=== PATIENT | female | born 1940 | race Caucasian/White ===

== ENCOUNTER → 2024-01-06 10:19 | Outpatient (REF) | payer MEDICARE, BC, SELFPAY | LOC: HWRAD 10:19 | PROVIDERS: ATTENDING PHYSICIAN Student in an Organized Health Care Education/Training Program; FAMILY PHYSICIAN Internal Medicine | DX: A31.0 Pulmonary mycobacterial infection (principal) | CPT/HCPCS: 71250 ==

== ENCOUNTER → 2024-06-22 10:52 | Outpatient (REF) | payer MEDICARE, BC, SELFPAY | LOC: HWRAD 10:52 | PROVIDERS: ATTENDING PHYSICIAN Internal Medicine | DX: E04.1 Nontoxic single thyroid nodule (principal) | CPT/HCPCS: 76536 ==

== ENCOUNTER 2024-07-19 06:14 | Day surgery (SDC) | payer MEDICARE, BC, SELFPAY ==
[2024-07-19] VITALS (7 sets, daily range): BP systolic 101–155; BP diastolic 58–80; BMI 22.0
[2024-07-19] MEDS: NORMOSOL-R/PLASMALYTE-A 1000 IV (07:29)
[2024-07-19] MEDS: TYLENOL 1000 MG PO (07:44)
[2024-07-19] MEDS: CELEBREX 200 MG PO (07:45)
[2024-07-19] MEDS: ROXICODONE 5 MG PO (10:17)
== END 2024-07-19 10:45 | disposition home or self-care (01) ==
LOC: SDS 06:14
PROVIDERS: ATTENDING PHYSICIAN Orthopaedic Surgery
DX: G56.22 Lesion of ulnar nerve, left upper limb (principal)
CPT/HCPCS: 64718

== ENCOUNTER → 2024-08-01 10:56 | Outpatient (REF) | payer MEDICARE, BC, SELFPAY | LOC: HWRAD 10:56 | PROVIDERS: ATTENDING PHYSICIAN Internal Medicine; REFERRING PHYSICIAN Internal Medicine Rheumatology | DX: Z12.31 Encounter for screening mammogram for malignant neoplasm of breast (principal); M81.0 Age-related osteoporosis without current pathological fracture | CPT/HCPCS: 77063; 77067; 77080 ==

== ENCOUNTER → 2024-08-26 16:00 | Outpatient (REF) | payer MEDICARE, BC, SELFPAY | LOC: HWRCS 16:00 | PROVIDERS: ATTENDING PHYSICIAN Internal Medicine Cardiovascular Disease; FAMILY PHYSICIAN Internal Medicine | DX: Z86.79 Personal history of other diseases of the circulatory system (principal); R06.09 Other forms of dyspnea | CPT/HCPCS: 93306 ==

== ENCOUNTER 2024-09-26 18:19 | Inpatient (IN) | payer MEDICARE, BC, SELFPAY ==
[2024-09-26] VITALS (11 sets, daily range): BP systolic 101–133; BP diastolic 54–111; BMI 22.0; BMI 21.6
[2024-09-26 12:27] LABS: ALT (SGPT) 21 U/L (0-35); AST (SGOT) 32 U/L (14-36); Albumin 3.2 g/dl (3.5-5.0); Alkaline Phosphatase 63 U/L (38-126); Blood Urea Nitrogen 39 mg/dl (7-17); Calcium 8.2 mg/dl (8.4-10.2); Carbon Dioxide 20 mmol/L (22-30); Chloride 95 mmol/L (98-107); Estimated Creatinine Clearance 19 ml/min; Glucose 128 mg/dl (70-99); Lipase 20 U/L (23-300); Potassium 3.9 mmol/L (3.5-5.1); Sodium 131 mmol/L (135-145); Total Bilirubin 0.4 mg/dl (0.2-1.3); Total Protein 5.7 g/dl (6.3-8.2); eGFR 29.39
[2024-09-26] MEDS: OMNIPAQUE 50 ML PO (13:00)
[2024-09-26] MEDS: NSS 1000 IV ×2 (13:01→20:07)
[2024-09-26 13:17] LABS: Band Neutrophils 8 % (0-3); Hematocrit 28.9 % (37.0-47.0); Hemoglobin 10.5 g/dL (12.0-16.0); Lymphocytes 3 % (20-51); Mean Corp Hgb Conc. 36.3 g/dL (33.0-37.0); Mean Corpuscular Hgb 33.1 pg (27.0-31.0); Mean Corpuscular Volume 91.2 fL (81.0-99.0); Mean Platelet Volume 9.5 fL (7.4-10.4); Monocytes 6 % (2-9); Normal RBC Morphology No; Nucleated Red Blood Cells 1 (-); Platelet Count 162 10^3/uL (130-400); Platelets Checked Yes; Red Blood Cell Count 3.17 10^6/uL (4.20-5.40); Red Cell Dist. Width 14.1 % (11.5-14.5); Segmented Neutrophils 83 % (42-75); White Blood Cell Count 13.2 10^3/uL (4.8-10.8)
[2024-09-26 13:18] LABS: Rouleaux 1+; Total Cells Counted 100
--- NOTE | 2024-09-26 15:20 | ED.GENMED ---
History of Present Illness
<Raymond Shaw PA-C - Last Filed: 09/28/24 10:06>
General
Chief Complaint: Abdominal Symptoms
Time Seen by Provider: 09/26/24 12:44
History of Present Illness
History of Present Illness:
84-year-old female presents the emergency department for evaluation of general malaise. She reportedly had 2 days of fever over the weekend, the symptoms have resolved and she has been able to drink p.o. fluids today. Was sent to emergency
department by her nursing facility staff due to fatigue. She denies abdominal pain currently but has not had a bowel movement or passed flatus in the past 2 days
Past History
<Raymond Shaw PA-C - Last Filed: 09/28/24 10:06>
Past History
ED Past Medical History: COPD, Hypercholesterolemia and Other (Diverticulosis, osteoporosis)
ED Past Surgical History: Gynecological (Hysterectomy) and Orthopedic (Laminectomy, shoulder surgery)
Social History
Personal:
Living: with family
Employment: Retired
Review of Systems
<Raymond Shaw PA-C - Last Filed: 09/28/24 10:06>
Review of Systems
Allergies reviewed?: Yes
All Other Systems: ROS reviewed and negative except as documented in HPI and ROS
Phy Exam
<Raymond Shaw PA-C - Last Filed: 09/28/24 10:06>
Physical Exam
Physical Exam:
GEN: Well appearing, NAD, WDWN
HEENT: Oral mucosa moist, no scleral icterus
Cardiac: Mildly tachycardic, regular
Lung: No respiratory distress, no tachypnea
Abdomen: Soft, focal left lower and left upper abdominal tenderness, no distention
MSK: No gross deformity or injuries
Skin: Good color, no pallor or jaundice, no rashes
Neuro: AO x3, moves all extremities freely
Psych: Calm, cooperative
Course
<Raymond Shaw PA-C - Last Filed: 09/28/24 10:06>
Orders/Labs/Results
Orders:
Orders
09/26/24 11:42
EKG [Electrocardiogram (*1)] Urgent
Reason for Study: Tachycardia
09/26/24 11:43
EKG- Treatment ONCE
09/26/24 11:56
Complete Blood Count/With Diff Urgent
Comprehensive Metabolic Panel Urgent
Lipase Urgent
Manual Differential Urgent
09/26/24 12:51
CT Abd/pel (oral only)-[facility] Only Urgent
Comment:
Reason For Exam: N/V, distention
0.9% Sodium Chloride 1000 ml [Nss] 1,000 ml IV BOLUS
Iohexol [Omnipaque] See Protocol PO NOW STA
09/26/24 Dinner
NPO
Allow oral meds: Yes
Allow clear liquids: Sips of Clears
NPO with Ice Chips: Yes
09/26/24 15:52
0.9% Sodium Chloride 500 ml [Nss] 500 ml IV BOLUS
09/26/24 17:24
Mag Hydrox/Al Hydrox/Simeth [Maalox] 30 ml PO NOW STA
09/26/24 17:32
Blood Culture Urgent
GAYE Source: Blood/Venous
Specimen Description:
09/26/24 17:55
Lactate Level [Lactic Acid] Urgent
Procalcitonin Urgent
PCT Algorithmm Indication: Sepsis
09/26/24 17:58
Consult Surgery [SURGICAL CONSULT] Routine
Consulting Provider: Jovan Santana
Was physician already notified: Yes
Reason for consult: ruq pain septis concern acute choleycystitis
Ondansetron Injectable [Zofran] 4 mg IV Q6HPRN PRN
09/26/24 18:00
Admit/Transfer Patient As Directed
Co-Sign Provider:
Level of Care: Inpatient admission
Assign to:: Telemetry
Physician / Group: diony zavala
Diagnosis: sepsis impending shock conc. Acute choleycystits, xochitl/vomiting
Reason for Telemetry: Arrhythmia
Date to Stop Telemetry: 09/29/24
Time to Stop Telemetry: 11:00
Reason for Hospitalization: sepsis impending shock conc. Acute choleycystits, xochitl/vomiting
Expected length of stay greater than two midnights?: Yes
ELOS- Estimated Length of Stay in days: 5
I certify the patient meets the requirements for IP care: Yes
Code Status As Directed
Resuscitation Status: Do not resuscitate
Reached after discussion with pt or family/Healthcare POA: Yes
Based on pt advanced directive or healthcare POA form: Yes
Decision communicated with: Per patient with son Sj, Margo and daughter Dea at bedside
0.9% Sodium Chloride 1000 ml [Nss] 1,000 ml IV 80 mls/hr
Piperacillin/Tazo 2.25 Gram [Zosyn] 2.25 grams in 50 ml IV Q6H
DNR Bracelet Application ONCE
09/26/24 18:04
PRN Pain Medication Management As Directed
May give lesser potent ordered pain med per pt: Yes
preference::
Protocol:: Medication orders for pain may be administered in a
manner that supports deferring to patient preference
when the pt is:
- Requesting an ordered lesser potent pain medication.
Least to most potent pain medications are defined
as: acetaminophen < NSAID < tramadol < opioids
(morphine, oxycodone, hydromorphone).
- Requesting a lesser dose of the same medication IF
ORDERED.
- Requesting a less intrusive route of administration
if both routes are prescribed by the provider (PO <
IV).
09/26/24 19:35
Acetaminophen [Tylenol] 650 mg PO Q4HPRN PRN
Albuterol [ProAIR HFA INHALER] 2 puff INH R Q6HPRN PRN
09/26/24 19:35
Activity As Directed
Activity Level: As Tolerated
Intake/ Output As Directed
Frequency: Per unit guidelines
Vital Signs As Directed
Frequency: Per unit guidelines
Pt Eval And Treat Routine
Activity Level: As Tolerated
DX Deep Vein Thrombosis Video Routine
09/26/24 20:00
Fluticasone/Salmeterol 115/21 [Advair Hfa 115/21 Mcg Inhaler] 2 puff INH R BID
Heparin 5,000 units SC Q12
cycloSPORINE [Restasis 0.05% Ophthalmic Emulsion] 1 drops BOTH EYES Q12
09/26/24 22:00
Trazodone [Desyrel] 100 mg PO HS
09/27/24 00:00
US Abdomen Complete/Upper Urgent
Reason For Exam: ruq pain/septic shock
09/27/24 06:28
Cardiovascular Evaluation IN AM
Complete Blood Count/With Diff IN AM
Comprehensive Metabolic Panel IN AM
09/27/24 08:00
Calcium Carbonate/Vitamin D3 [Oscal 500 + D] 500 mg PO DAILY
Cholecalciferol (Vitamin D3) [VITAMIN D3 (cholecalciferol)] 25 mcg PO DAILY
Cyanocobalamin [Vitamin B-12] 1,000 mcg PO DAILY
Lactobac/Bifidobac [Visbiome] 1 cap PO DAILY
Multivitamin [Theragran] 1 tablet PO DAILY
Tiotropium [place] 2.5 Mcg [Spiriva Respimat 2.5 Mcg] 2 puff INH R DAILY
09/28/24 05:38
Complete Blood Count/With Diff IN AM
Comprehensive Metabolic Panel IN AM
09/29/24 06:00
Complete Blood Count/With Diff IN AM
Comprehensive Metabolic Panel IN AM
09/29/24 11:00
DC Protocol for Telemetry ONCE
09/30/24 06:00
Complete Blood Count/With Diff IN AM
Comprehensive Metabolic Panel IN AM
Abnormal Lab Results
09/26/24 09/26/24
11:56 17:55
WBC 13.2 H 10^3/uL
(4.8-10.8)
RBC 3.17 L 10^6/uL
(4.20-5.40)
Hgb 10.5 L g/dL
(12.0-16.0)
Hct 28.9 L %
(37.0-47.0)
MCH 33.1 H pg
(27.0-31.0)
Abs Neuts (Manual) 12.0 H 10^3/uL
(1.4-6.5)
Segmented Neutrophils 83 H %
(42-75)
Band Neutrophils 8 H %
(0-3)
Lymphocytes (Manual) 3 L %
(20-51)
Sodium 131 L mmol/L
(135-145)
Chloride 95 L mmol/L
(98-107)
Carbon Dioxide 20 L mmol/L
(22-30)
BUN 39 H mg/dl
(7-17)
Creatinine 1.7 H mg/dL
(0.6-1.0)
Glucose 128 H mg/dl
(70-99)
Lactic Acid < 0.5 L mmol/L
(0.7-2.0)
Calcium 8.2 L mg/dl
(8.4-10.2)
Total Protein 5.7 L g/dl
(6.3-8.2)
Albumin 3.2 L g/dl
(3.5-5.0)
Lipase 20 L U/L
(23-300)
Procalcitonin 12.75 H* ng/ml
(0.0-0.25)
09/26/24 11:56
09/26/24 11:56
Vital Signs
Initial and Last Documented VS:
Initial Vital Signs
Temp Pulse Resp BP Pulse Ox
98.7 F 110 21 109/60 94
09/26/24 11:43 09/26/24 11:43 09/26/24 11:43 09/26/24 11:43 09/26/24 11:43
Last Documented Vital Signs
Temp Pulse Resp BP Pulse Ox
98.3 F 85 16 116/61 98
09/28/24 07:30 09/28/24 07:30 09/28/24 07:30 09/28/24 07:30 09/28/24 07:30
<Jaxon Torres Jr., PA-C - Last Filed: 09/26/24 16:46>
Orders/Labs/Results
Orders:
Orders
09/26/24 11:42
EKG [Electrocardiogram (*1)] Urgent
Reason for Study: Tachycardia
09/26/24 11:43
EKG- Treatment ONCE
09/26/24 11:56
Complete Blood Count/With Diff Urgent
Comprehensive Metabolic Panel Urgent
Lipase Urgent
Manual Differential Urgent
09/26/24 12:51
CT Abd/pel (oral only)-[facility] Only Urgent
Comment:
Reason For Exam: N/V, distention
0.9% Sodium Chloride 1000 ml [Nss] 1,000 ml IV BOLUS
Iohexol [Omnipaque] See Protocol PO NOW STA
09/26/24 Dinner
NPO
Allow oral meds: Yes
Allow clear liquids: Sips of Clears
NPO with Ice Chips: Yes
09/26/24 15:52
0.9% Sodium Chloride 500 ml [Nss] 500 ml IV BOLUS
09/26/24 17:24
Mag Hydrox/Al Hydrox/Simeth [Maalox] 30 ml PO NOW STA
09/26/24 17:32
Blood Culture Urgent
GAYE Source: Blood/Venous
Specimen Description:
09/26/24 17:55
Lactate Level [Lactic Acid] Urgent
Procalcitonin Urgent
PCT Algorithmm Indication: Sepsis
09/26/24 17:58
Consult Surgery [SURGICAL CONSULT] Routine
Consulting Provider: Jovan Santana
Was physician already notified: Yes
Reason for consult: ruq pain septis concern acute choleycystitis
Ondansetron Injectable [Zofran] 4 mg IV Q6HPRN PRN
09/26/24 18:00
Admit/Transfer Patient As Directed
Co-Sign Provider:
Level of Care: Inpatient admission
Assign to:: Telemetry
Physician / Group: diony zavala
Diagnosis: sepsis impending shock conc. Acute choleycystits, xochitl/vomiting
Reason for Telemetry: Arrhythmia
Date to Stop Telemetry: 09/29/24
Time to Stop Telemetry: 11:00
Reason for Hospitalization: sepsis impending shock conc. Acute choleycystits, xochitl/vomiting
Expected length of stay greater than two midnights?: Yes
ELOS- Estimated Length of Stay in days: 5
I certify the patient meets the requirements for IP care: Yes
Code Status As Directed
Resuscitation Status: Do not resuscitate
Reached after discussion with pt or family/Healthcare POA: Yes
Based on pt advanced directive or healthcare POA form: Yes
Decision communicated with: Per patient with son Sj, Margo and daughter Dea at bedside
0.9% Sodium Chloride 1000 ml [Nss] 1,000 ml IV 80 mls/hr
Piperacillin/Tazo 2.25 Gram [Zosyn] 2.25 grams in 50 ml IV Q6H
DNR Bracelet Application ONCE
09/26/24 18:04
PRN Pain Medication Management As Directed
May give lesser potent ordered pain med per pt: Yes
preference::
Protocol:: Medication orders for pain may be administered in a
manner that supports deferring to patient preference
when the pt is:
- Requesting an ordered lesser potent pain medication.
Least to most potent pain medications are defined
as: acetaminophen < NSAID < tramadol < opioids
(morphine, oxycodone, hydromorphone).
- Requesting a lesser dose of the same medication IF
ORDERED.
- Requesting a less intrusive route of administration
if both routes are prescribed by the provider (PO <
IV).
09/26/24 19:35
Acetaminophen [Tylenol] 650 mg PO Q4HPRN PRN
Albuterol [ProAIR HFA INHALER] 2 puff INH R Q6HPRN PRN
09/26/24 19:35
Activity As Directed
Activity Level: As Tolerated
Intake/ Output As Directed
Frequency: Per unit guidelines
Vital Signs As Directed
Frequency: Per unit guidelines
Pt Eval And Treat Routine
Activity Level: As Tolerated
DX Deep Vein Thrombosis Video Routine
09/26/24 20:00
Fluticasone/Salmeterol 115/21 [Advair Hfa 115/21 Mcg Inhaler] 2 puff INH R BID
Heparin 5,000 units SC Q12
cycloSPORINE [Restasis 0.05% Ophthalmic Emulsion] 1 drops BOTH EYES Q12
09/26/24 22:00
Trazodone [Desyrel] 100 mg PO HS
09/27/24 00:00
US Abdomen Complete/Upper Urgent
Reason For Exam: ruq pain/septic shock
09/27/24 06:28
Cardiovascular Evaluation IN AM
Complete Blood Count/With Diff IN AM
Comprehensive Metabolic Panel IN AM
09/27/24 08:00
Calcium Carbonate/Vitamin D3 [Oscal 500 + D] 500 mg PO DAILY
Cholecalciferol (Vitamin D3) [VITAMIN D3 (cholecalciferol)] 25 mcg PO DAILY
Cyanocobalamin [Vitamin B-12] 1,000 mcg PO DAILY
Lactobac/Bifidobac [Visbiome] 1 cap PO DAILY
Multivitamin [Theragran] 1 tablet PO DAILY
Tiotropium [place] 2.5 Mcg [Spiriva Respimat 2.5 Mcg] 2 puff INH R DAILY
09/28/24 05:38
Complete Blood Count/With Diff IN AM
Comprehensive Metabolic Panel IN AM
09/29/24 06:00
Complete Blood Count/With Diff IN AM
Comprehensive Metabolic Panel IN AM
09/29/24 11:00
DC Protocol for Telemetry ONCE
09/30/24 06:00
Complete Blood Count/With Diff IN AM
Comprehensive Metabolic Panel IN AM
Abnormal Lab Results
09/26/24 09/26/24
11:56 17:55
WBC 13.2 H 10^3/uL
(4.8-10.8)
RBC 3.17 L 10^6/uL
(4.20-5.40)
Hgb 10.5 L g/dL
(12.0-16.0)
Hct 28.9 L %
(37.0-47.0)
MCH 33.1 H pg
(27.0-31.0)
Abs Neuts (Manual) 12.0 H 10^3/uL
(1.4-6.5)
Segmented Neutrophils 83 H %
(42-75)
Band Neutrophils 8 H %
(0-3)
Lymphocytes (Manual) 3 L %
(20-51)
Sodium 131 L mmol/L
(135-145)
Chloride 95 L mmol/L
(98-107)
Carbon Dioxide 20 L mmol/L
(22-30)
BUN 39 H mg/dl
(7-17)
Creatinine 1.7 H mg/dL
(0.6-1.0)
Glucose 128 H mg/dl
(70-99)
Lactic Acid < 0.5 L mmol/L
(0.7-2.0)
Calcium 8.2 L mg/dl
(8.4-10.2)
Total Protein 5.7 L g/dl
(6.3-8.2)
Albumin 3.2 L g/dl
(3.5-5.0)
Lipase 20 L U/L
(23-300)
Procalcitonin 12.75 H* ng/ml
(0.0-0.25)
09/26/24 11:56
09/26/24 11:56
Vital Signs
Initial and Last Documented VS:
Initial Vital Signs
Temp Pulse Resp BP Pulse Ox
98.7 F 110 21 109/60 94
09/26/24 11:43 09/26/24 11:43 09/26/24 11:43 09/26/24 11:43 09/26/24 11:43
Last Documented Vital Signs
Temp Pulse Resp BP Pulse Ox
98.3 F 85 16 116/61 98
09/28/24 07:30 09/28/24 07:30 09/28/24 07:30 09/28/24 07:30 09/28/24 07:30
<Raymond Shaw PA-C - Last Filed: 09/28/24 10:06>
MDM/Problems Addressed
MDM/Problems Addressed:
Patient presents after a bout of vomiting and fever over the weekend. She is noted to have mild acute kidney injury and signs of dehydration with mild tachycardia. On abdominal exam she has significant left-sided tenderness and given her report of
no flatus for at least 1 day we will obtain imaging to rule out a small bowel obstruction or other acute abdominal pathology. Care signed out to Ed Brian MATA pending imaging studies; likely plan to admit pt due to significant XOCHITL
<Jaxon Torres Jr., PA-C - Last Filed: 09/26/24 16:46>
*Critical Care Note
Total Time (30-74mins, 75-104mins- exclusive of procedures): Not Applicable
<Jaxon Torres Jr., PA-C - Last Filed: 09/26/24 16:46>
Update Note
Update Note:
Ed Brian Mata: Patient CT scan without emergent findings. Patient admitted for further treatment of XOCHITL.
ED Attending Note
<Raymond Shaw PA-C - Last Filed: 09/28/24 10:06>
-
Portions of this chart may have been created with voice recognition software.� Occasional wrong word or��sound alike� substitutions may have occurred due to the inherent limitations of voice recognition software.
Discharge Plan
Departure
Patient Disposition: Admit
Date of Disposition: 09/26/24
Time of Disposition: 16:46
Admit to: Med/Surg
Admit to doctor: Jazminey
Presentation/result/management discussed w/ accepting MD/DO: Hospitalist
Patient with high blood pressure during this ER visit?: No
Condition: Good
Covid-19: Not Applicable
Discharge Problem:
XOCHITL (acute kidney injury)
Interventions
Interventions:
*Risk Screen - Suicide Last Done: 09/26/24 11:38
*General Assessment Last Done: 09/26/24 11:38
*Neglect/Abuse Screening Last Done: 09/26/24 11:38
ED- Fall Risk Assessment Last Done: 09/26/24 11:38
*ED COVID-19 Vaccine History Last Done: 09/26/24 11:38
*Nursing Disposition Last Done: 09/26/24 18:57
LB-Jluooz-Cocypgvmwv Assessment Last Done: 09/26/24 11:44
Discharge Date and Time
Discharge Date/Time: 09/26/24 19:41
--- NOTE | 2024-09-26 16:48 | HPS.HSE ---
Family Physician
-
Family Physician: Rosalba Woods
Chief Complaint
-
Nausea, vomiting, indigestion x 5 days, fever x 3 days Tmax 102F
History of Present Illness
84-year-old female from [facility] who states she has had 5 days of fatigue, lack of appetite along with vomiting 3-4 times a day and indigestion. She reports she started with a fever 3 days ago Tmax 102F for the past 3 days Thursday
Thursday with last dose of Tylenol being Thursday evening. She states she has not eaten anything for the last 5 days she has been drinking water 30 to 40 ounces daily. In the ER she is tender in her right upper quadrant with complaints of
indigestion she is elevated white blood cell count with bandemia and XOCHITL due to vomiting/lack of oral intake. She has past medical history of essential HTN, HLD, chronic COPD, JENNIFER Dx January 2022 was on chronic antibiotics until January 2023 and
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
left cubital tunnel repair July 2024.
Impression/plan:
Admit to telemetry
#Sepsis impending shock concern for acute cholecystitis
Patient reports 3 days of fever Tmax 102F with nausea, vomiting, indigestion x 5 days
WBC 13.2 left shift bands 8%, 99.4F, HR 114
BP 101/60
-Blood culture x 1
-Consult ID
-Status post 2 L IV NSS in ER
-Stat ultrasound right upper quadrant
-IV Zosyn 2.5 g renal dose due to XOCHITL
-Follow CBC, CMP
CT abdomen pelvis oral contrast only:
1. No evidence for an acute process in the abdomen or pelvis within the limitations of lack of IV contrast
2. Mild cholelithiasis
3. Severe disc space narrowing at L4-L5 and L5-S1.
Grade 2 degenerative to anterior listhesis of L4 on L5.
Posterior laminectomy defects at L4-L5 and L5-S1.
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
EKG: Sinus tach 111 bpm, QTc 467 MS otherwise normal
#XOCHITL 2/2 GI losses, vomiting
Creat 1.7/bun 39
-IV NSS 2 L given in ER, IV NSS 80 cc/h
-Follow CMP
#Hypotension�mild in setting of sepsis/XOCHITL hypovolemia/essential HTN
BP 101/60> 124/78 status post 2 L IV NSS in ER
-Hold irbesartan 300 mg daily, furosemide 40 mg daily
#Macrocytic anemia suspect B12 deficiency
Hgb 10.5
-Continue B12 supplement
-Follow CBC
#Hx stage I diastolic dysfunction 2021
Follow LES
-Follows with Dr. Ortiz [facility] cardiology
2D echo 08/26/2024: EF 50 to 55%, no wall abnormalities, normal LVS and LVSF, mild mitral regurgitation. Moderately calcified aortic valve without stenosis. Mild to moderate TR, PASP 35 mmHg
#Chronic COPD
-Patient follows with Dr. Krishnamurthy
-Continue Advair 2 puffs twice daily, albuterol
#History of JENNIFER Dx January 2022
-Patient took course of azithromycin, ethambutol, rifampin from January 2022 until January 2023
Patient follows with Dr. Malone it is
#HLD
-Check lipid profile
-Hold Zocor 20 mg at bedtime
#Diverticulosis/diverticulitis status post colectomy, rectal fistula repair and anal fissure repair Hx
#Osteoporosis hx
-Continue vitamin D supplementation with calcium, patient also gets Prolia 60 mg SQ every 6 months
#Insomnia
-Continue trazodone 100 mg at bedtime
#Hx glaucoma with stents placed in eyes 3 to 4 years ago
-Continue Restasis eyedrops
DVT prophylaxis
Subcu heparin
DNR per patient with son Sj Margo present and daughter Dea present at bedside
Medical History
Past Medical History
Past Medical History: Reports Other (COPD, JENNIFER on chronic antibiotics from January 2022, hypercholesteremia, diverticulosis/diverticulitis status post colectomy, rectal fistula repair, anal fissure, osteoporosis, IBS,)
Past Surgical History: Reports Other ( Gynecological (Hysterectomy) and Orthopedic (Laminectomy, shoulder surgery)Left cubital tunnel syndrome release 07/19/2024 Hysterectomy Laminectomy Shoulder surgery Diverticulosis/diverticulitis status post
colectomy, rectal fistula repair and anal fissure repair)
Social History
Tobacco: Non-smoker
Alcohol: Occasional
Drug: None
Personal: Single
Living: Alone ([facility])
Family History
Family History: Other (Mother uterine cancer, father hit by a car)
Allergies / Home Medications
Allergies reflects when Allergies were last updated in [employer].
Home Medications with original date entered in [employer]
Allergy/Medication List:
Allergies
Allergy/AdvReac Type Severity Reaction Status Date / Time
codeine Allergy Nausea Verified 09/26/24 11:49
Iodinated Contrast Media Allergy Hives Verified 09/26/24 11:49
iodine Allergy Hives Verified 09/26/24 11:49
Home Medications
calcium 600 mg (as carbonate)-vitamin D3 10 mcg (400 unit) tablet (Calcium 600 + D(3)) 1 tab PO DAILY 05/14/15
denosumab 60 mg/mL subcutaneous syringe (Prolia) 60 mg SC [id number] 05/14/15
fluticasone 250 mcg-salmeterol 50 mcg/dose blistr powdr for inhalation (Advair Diskus) 2 puff inhalation R BID 05/14/15
tiotropium bromide 18 mcg capsule with inhalation device (Spiriva with HandiHaler) 1 cap inhalation R DAILY 05/14/15
cyanocobalamin (vitamin B-12) 1,000 mcg tablet 1,000 mcg PO DAILY 11/02/23
cyclosporine 0.05 % eye drops in a dropperette (Restasis) 1 drp BOTH EYES Q12H 11/02/23
irbesartan 300 mg tablet 300 mg PO DAILY 11/02/23
simvastatin 20 mg tablet (Zocor) 20 mg PO HS 11/02/23
trazodone 100 mg tablet 100 mg PO HS 11/02/23
Lactobac no.2-Bifidobac no.1-S. thermo 112.5 billion cell capsule (Visbiome) 1 cap PO DAILY 07/11/24
cholecalciferol (vitamin D3) 25 mcg (1,000 unit) capsule (Vitamin D3) 25 mcg PO DAILY 07/11/24
multivitamin 1 tab PO DAILY 07/11/24
loperamide 2 mg capsule 2 mg PO DAILYPRN PRN diarrhea 07/19/24
albuterol sulfate 90 mcg/actuation aerosol inhaler 2 puff inhalation R Q6HPRN PRN sob/wheezing 09/26/24
furosemide 40 mg tablet 40 mg PO DAILY 09/26/24
Review of Systems
-
History Source: Patient and Family
A 12 point ROS was completed and negative except as noted: Yes
Constitutional: Reports Fever; Denies Chills
EENT: Reports Other (Blood culture last week to lower lip resolved); Denies Sore Throat or Runny Nose
Respiratory: Denies Cough or Trouble Breathing
Cardiac: Denies Chest Pain, Palpitations or Syncope
Abdomen/GI: Reports Abdominal Pain (Right upper quadrant), Nausea, Vomiting and Anorexia
: Denies Dysuria, Frequency, Flank Pain, Incontinence, Difficulty Voiding or Urgency
Musculoskeletal: Denies Joint Pain or Edema
Skin: Denies Itching or Rash
Neurological: Reports Weakness; Denies Dizzy or Headache
Endocrine: Reports No Symptoms
Hematologic/Lymphatic: Reports No Symptoms
Psych: Reports Calm
Physical Exam
Vital Signs
Vital Signs
Temp Pulse Resp BP Pulse Ox
99.4 F 114 21 124/78 93
09/26/24 16:13 09/26/24 14:30 09/26/24 14:30 09/26/24 14:06 09/26/24 12:45
Physical Exam
General: Conversant and Pain; No Fever or Chills
HEENT: NormoCephalic, Anicteric, Moist mucous membranes, PERRLA, [place] Conjunctivae and No Ptosis
Respiratory: Clear; No Wheezes, Rales or Rhonchi
Cardiac: S1/S2 and Regular Rhythm; No Murmur, Rub, Gallop or Peripheral Edema
Breast: Deferred by me
GI: Soft, Non Distended, Normal Bowel Sounds, Tender (Right upper quadrant tenderness), No Hepatosplenomegaly and Other (Positive Swan sign)
Rectal: Deferred by Provider
Genito-urinary: Deferred by me
Musculoskeletal: No Clubbing, No Cyanosis, No Edema and Other (Herbedens nodes bilateral hands at DIP joints)
Skin: Warm and Dry; No Rash
Neuro: AO x 3, No Motor Deficits, Nonfocal/grossly intact, Cranial Nerves Intact and No Sensory Deficits; No Slurred Speech, Facial Droop, Tremors or Sedated
Psych: Calm
Laboratory Results
-
09/26/24 11:56
09/26/24 11:56
Laboratory Results
Total Bilirubin 0.4 mg/dl (0.2-1.3) 09/26/24 11:56
AST 32 U/L (14-36) 09/26/24 11:56
ALT 21 U/L (0-35) 09/26/24 11:56
Alkaline Phosphatase 63 U/L (38-126) 09/26/24 11:56
Lipase 20 U/L (23-300) L 09/26/24 11:56
Data Reviewed
-
CT Scan: Report Reviewed by me
Lab Data: Labs Reviewed by me
Impression/Plan
-
Impression/plan:
Admit to telemetry
#Sepsis impending shock concern for Acute cholecystitis
Patient reports 3 days of fever Tmax 102F with nausea, vomiting, indigestion x 5 days
WBC 13.2 left shift bands 8%, 99.4F, HR 114
BP 101/60
-Blood culture x 1, lactate, Pro-Eris
-Consult surgery
-Status post 2 L IV NSS in ER
-Stat Ultrasound right upper quadrant
-N.p.o. except sips clear , ice chips and meds
-Maalox given in ER
-IV Zosyn 2.5 g renal dose due to XOCHITL
-IV Zofran as needed
-Tylenol as needed pain, fever
-Follow CBC, CMP
CT abdomen pelvis oral contrast only:
1. No evidence for an acute process in the abdomen or pelvis within the limitations of lack of IV contrast
2. Mild cholelithiasis
3. Severe disc space narrowing at L4-L5 and L5-S1.
Grade 2 degenerative to anterior listhesis of L4 on L5.
Posterior laminectomy defects at L4-L5 and L5-S1.
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
EKG: Sinus tach 111 bpm, QTc 467 MS otherwise normal
#XOCHITL 2/2 GI losses, vomiting
Creat 1.7/bun 39
-IV NSS 2 L given in ER, IV NSS 80 cc/h
-Follow CMP
#Hypotension�mild in setting of sepsis/XOCHITL hypovolemia/essential HTN
BP 101/60> 124/78 status post 2 L IV NSS in ER
-Hold irbesartan 300 mg daily, furosemide 40 mg daily
#Macrocytic anemia suspect B12 deficiency
Hgb 10.5
-Continue B12 supplement
-Follow CBC
#Hx stage I diastolic dysfunction 2021
Follow LES
-Follows with Dr. Ortiz [facility] cardiology
2D echo 08/26/2024: EF 50 to 55%, no wall abnormalities, normal LVS and LVSF, mild mitral regurgitation. Moderately calcified aortic valve without stenosis. Mild to moderate TR, PASP 35 mmHg
#Chronic COPD
-Patient follows with Dr. Krishnamurthy
-Continue Advair 2 puffs twice daily, albuterol
#History of JENNIFER Dx January 2022
-Patient took course of azithromycin, ethambutol, rifampin from January 2022 until January 2023
Patient follows with Dr. Malone it is
#HLD
-Check lipid profile
-Hold Zocor 20 mg at bedtime
#Diverticulosis/diverticulitis status post colectomy, rectal fistula repair and anal fissure repair Hx
#Osteoporosis hx
-Continue vitamin D supplementation with calcium, patient also gets Prolia 60 mg SQ every 6 months
#Insomnia
-Continue trazodone 100 mg at bedtime
#Hx glaucoma with stents placed in eyes 3 to 4 years ago
-Continue Restasis eyedrops
DVT prophylaxis
Subcu heparin
DNR per patient with son Sj Margo present and daughter Dea present at bedside
[2024-09-26] MEDS: MAALOX 30 ML PO (17:49)
--- NOTE | 2024-09-26 17:51 | W.PN.UPDATE ---
Update Note
Progress Note Update
This note serves as an addendum to the H&P by engine assembly supervisor RACHEL Brinda STEWARDURGIS
HPI
84F I- ADL at [facility] HX Diverticulosos, HLD, HX Gall stone, COPD, hysterectomy seen at ER:
- report general malaise
- 2 days of fever over the weekend. T Max 102
- N/V since . No dirrhea, Poor POs
- dyspepsia but denied abdominal pain but tender RUQ on exam
Reviewed VS: T 99.4 HR 115 BP 124/78
PE
Gen: not toxic looking
HEENT: anicteric
Neck: supple
Lungs: CTA
Cor: ST , no mumur
Abdomen: Soft, tender RUQ but not guarded
BILLING CHECKER: AAO3, NFND
MS: no edema
Psych: AAO3
Laboratory Tests
11/03/23 09/26/24
05:55 11:56
WBC 13.2 H
Hgb 12.8 10.5 L
Band Neutrophils 8 H
Sodium 131 L
Chloride 95 L
Carbon Dioxide 20 L
BUN 39 H
Creatinine 0.5 L 1.7 H
eGFR 29.39
Total Bilirubin 0.4
AST 32
ALT 21
Alkaline Phosphatase 63
Albumin 3.2 L
Lipase 20 L
BCx sent
EKG
SINUS TACHYCARDIA
OTHERWISE NORMAL ECG
WHEN COMPARED WITH ECG OF 02-NOV-2023 13:41,
NO SIGNIFICANT CHANGE WAS FOUND
Confirmed by MD ARIELLA, AUBREY ([id number]) on 09/26/2024 2:59:[address] No [address] evidence for an acute process in the abdomen or pelvis within the limitations of the lack of intravenous contrast.
2. Mild cholelithiasis.
3. Additional chronic findings, as detailed above.
ASSESSMENT & PLAN
Sepsis concern for acute calculus cholecystitis, Gastritis
However nl LFTs. Nl Lipase
NEG CT for acute process
Associated with N/V. Poor POs. NO dirrhea
- US Abdomen
- BCx sent
- check LA and PCT
- Empiric Zosyn
- NPO except sips and ice chips, IVF for sepsis
- PRN Tylenol
- IV Zofran PRN
- Maalox PRN
- GS consult
XOCHITL due to dehydration and GI vomiting loss
Hyponatremia Na 131
- Hold Lasix
- Hold Irbesartan
- IV NS
Essential hypertension
- Hold irbesartan due to XOCHITL
Hypercholesterolemia
- Hold statin
HX JENNIFER
Compted as of azithromycin, ethambutol, rifampin January 2023
Diverticulosis
Osteoporosis
DVT Px: SQH
Full code
IP TLM
[2024-09-26] MEDS: ZOSYN 50 IV ×2 (18:10→23:41)
[2024-09-26] MEDS: NSS 500 IV (18:10)
[2024-09-26 18:15] LABS: Lactic Acid < 0.5 mmol/L (0.7-2.0)
[2024-09-26 18:32] LABS: Procalcitonin 12.75 ng/ml (0.0-0.25)
[2024-09-26] MEDS: ADVAIR HFA 115/21 MCG INHALER 2 PUFF INH (20:11)
[2024-09-26] MEDS: RESTASIS 0.05% OPHTHALMIC EMULSION 1 DROPS BOTH EYES (20:16)
[2024-09-26] MEDS: HEPARIN SC (20:20)
[2024-09-26] MEDS: ZOFRAN 4 MG IV (21:01)
[2024-09-26] MEDS: DESYREL 100 MG PO (21:02)
--- NOTE | 2024-09-26 22:00 | PTCARENOTE ---
Patient received from ED via stretcher, Family at bedside. Patient denies any N/V or abdominal pain upon arrival to floor. POC discussed with patient and family. All questions answered and all verbalized a good understanding. Sinus Tachycardia noted
on monitor, low 110's. MD aware, IVF started. Call correa reviewed with patient, left with in reach. Care ongoing. Will monitor.
[2024-09-27] VITALS (16 sets, daily range): BP systolic 103–139; BP diastolic 50–70; BMI 21.7
[2024-09-27] MEDS: ZOSYN 50 IV ×2 (05:27→13:13)
[2024-09-27] MEDS: NSS 1000 IV ×2 (05:32→18:00)
[2024-09-27 07:02] LABS: % Basophils 0.3 % (0-2); % Eosinophils 0.7 % (0-6); % Immature Granulocytes 1.5 % (0-0.5); % Lymphocytes 8.6 % (20.5-51.1); % Monocytes 8.6 % (1.7-9.3); % Neutrophils 80.3 % (42.2-75.2); Absolute Eosinophils 0.1 10^3/uL (0-0.7); Absolute Immature Granulocytes 0.1 10^3/uL (0-0.05); Absolute Lymphocytes 0.8 10^3/uL (1.2-3.4); Absolute Monocytes 0.8 10^3/uL (0.1-0.6); Absolute Neutrophils 7.5 10^3/uL (1.4-6.5); Hematocrit 27.7 % (37.0-47.0); Hemoglobin 9.9 g/dL (12.0-16.0); Mean Corp Hgb Conc. 35.7 g/dL (33.0-37.0); Mean Corpuscular Hgb 33.3 pg (27.0-31.0); Mean Corpuscular Volume 93.3 fL (81.0-99.0); Mean Platelet Volume 9.5 fL (7.4-10.4); Nucleated Red Blood Cells % 0 %; Platelet Count 154 10^3/uL (130-400); Red Blood Cell Count 2.97 10^6/uL (4.20-5.40); Red Cell Dist. Width 14.6 % (11.5-14.5); White Blood Cell Count 9.3 10^3/uL (4.8-10.8)
[2024-09-27 07:31] LABS: ALT (SGPT) 21 U/L (0-35); AST (SGOT) 34 U/L (14-36); Albumin 2.8 g/dl (3.5-5.0); Alkaline Phosphatase 56 U/L (38-126); Blood Urea Nitrogen 32 mg/dl (7-17); Calcium 7.2 mg/dl (8.4-10.2); Carbon Dioxide 18 mmol/L (22-30); Chloride 102 mmol/L (98-107); Estimated Creatinine Clearance 24 ml/min; Glucose 88 mg/dl (70-99); HDL Cholesterol 16 mg/dl; LDL Cholesterol, Calculated 57 mg/dl; Potassium 3.5 mmol/L (3.5-5.1); Sodium 135 mmol/L (135-145); Total Bilirubin 0.3 mg/dl (0.2-1.3); Total Cholesterol 109 mg/dl (50-199); Total Protein 5.3 g/dl (6.3-8.2); Triglyceride 183 mg/dl (10-149); Very Low Density Lipoprotein 36 mg/dl (0-30)
--- NOTE | 2024-09-27 07:46 | CON.GS ---
Addendum entered and electronically signed by Jovan Santana MD 09/27/24 07:59:
Attempted to contact family, no response.
Original Note:
Medical History
-
Chief Complaint: General malaise, nausea and vomiting, abdominal pain
History of Present Illness:
Patient is an 84 yo F with a PMH of HLD, COPD, JENNIFER, IBS, diverticulitis s/p partial colectomy, s/p rectal fistula and anal fissure repair, s/p multiple orthopedic procedures, and s/p hysterectomy. Ms. Soto presents with approximately 5 days of
fatigue and weakness. Associated poor appetite, as well as nausea and vomiting. Associated fevers up to 102. She denies any significant abdominal pain. She reports looser stools. She denies any jaundice, pale stools, or tea colored urine. She
denies any prior knowledge or issues with her gallbladder. No significant improvement in symptoms since admission.
She recently underwent a LEFT cubital tunnel release on 07/19/[address] Rivas. She tolerated this procedure well, but does have some residual discomfort necessitating some assistance with living. She currently lives at [facility].
Past Medical History
Past Medical History: COPD, Hypercholesterolemia and Other (JENNIFER, IBS)
Past Surgical History: Bowel Resection (Diverticulitis s/p partial colectomy, rectal fstula and aa fissure repair) and Gynecological (Hysterectomy)
Social History
Tobacco: Former Smoker
Alcohol: Occasional
Drug: None
Personal: Single
Living: Alone ([facility])
Family History
Family History: Reviewed & Noncontributory
Allergies / Home Medications
Allergy/AdvReac Type Severity Reaction Status Date / Time
codeine Allergy Nausea Verified 09/26/24 11:49
Iodinated Contrast Media Allergy Hives Verified 09/26/24 11:49
iodine Allergy Hives Verified 09/26/24 11:49
�Medication �Instructions �Recorded �Confirmed �Type
calcium 600 mg (as 1 tab PO DAILY 05/14/15 09/26/24 History
carbonate)-vitamin D3 10 mcg (400
unit) tablet (Calcium 600 + D(3))
denosumab 60 mg/mL subcutaneous 60 mg SC [id number] 05/14/15 09/26/24 History
syringe (Prolia)
fluticasone 250 mcg-salmeterol 50 2 puff inhalation R BID 05/14/15 09/26/24 History
mcg/dose blistr powdr for
inhalation (Advair Diskus)
tiotropium bromide 18 mcg capsule 1 cap inhalation R DAILY 05/14/15 09/26/24 History
with inhalation device (Spiriva
with HandiHaler)
cyanocobalamin (vitamin B-12) 1,000 mcg PO DAILY 11/02/23 09/26/24 History
1,000 mcg tablet
cyclosporine 0.05 % eye drops in a 1 drp BOTH EYES Q12H 11/02/23 09/26/24 History
dropperette (Restasis)
irbesartan 300 mg tablet 300 mg PO DAILY 11/02/23 09/26/24 History
simvastatin 20 mg tablet (Zocor) 20 mg PO HS 11/02/23 09/26/24 History
trazodone 100 mg tablet 100 mg PO HS 11/02/23 09/26/24 History
Lactobac no.2-Bifidobac no.1-S. 1 cap PO DAILY 07/11/24 09/26/24 History
thermo 112.5 billion cell capsule
(Visbiome)
cholecalciferol (vitamin D3) 25 25 mcg PO DAILY 07/11/24 09/26/24 History
mcg (1,000 unit) capsule (Vitamin
D3)
multivitamin 1 tab PO DAILY 07/11/24 09/26/24 History
loperamide 2 mg capsule 2 mg PO DAILYPRN PRN diarrhea 07/19/24 09/26/24 History
albuterol sulfate 90 mcg/actuation 2 puff inhalation R Q6HPRN PRN 09/26/24 09/26/24 History
aerosol inhaler sob/wheezing
furosemide 40 mg tablet 40 mg PO DAILY 09/26/24 09/26/24 History
Review of Systems
-
A 10 point review of systems was completed, and was negative except as per HPI.
Physical Exam
Vital Signs
Temp Pulse Resp BP Pulse Ox
98.7 F 104 18 105/50 93
09/27/24 03:00 09/27/24 03:00 09/27/24 03:00 09/27/24 03:00 09/27/24 03:00
09/26/24 09/27/24 09/28/24
06:59 06:59 06:59
Actual Weight 53.722 kg
Body Mass Index (BMI) 21.7
Lab Results
09/27/24 06:28
09/27/24 06:28
WBC 9.3 10^3/uL (4.8-10.8) 09/27/24 06:28
Hgb 9.9 g/dL (12.0-16.0) L 09/27/24 06:28
Hct 27.7 % (37.0-47.0) L 09/27/24 06:28
Plt Count 154 10^3/uL (130-400) 09/27/24 06:28
Abs Immat Gran (auto) 0.1 10^3/uL (0-0.05) H 09/27/24 06:28
Neutrophils % 80.3 % (42.2-75.2) H 09/27/24 06:28
Physical Exam
General: Well Developed, Well Nourished, No Apparent Distress and Other (Weak)
HEENT: Normocephalic and Anicteric
Respiratory: Non Labored Respirations
Cardiac: Regular Rhythm
GI: Soft, Tender (RUQ, positive Swan's sign), Distended, Incisions (Well healed) and Other (No peritonitis)
Skin: Warm and Dry
Neuro: Nonfocal/Grossly Intact
Data Reviewed
-
CT Scan: Image Personally Visualized and interpreted and Report Reviewed by me
Labs: Labs Reviewed by me
Old Records: Reviewed
Assessment / Plan
-
Patient is a 84 yo F p/w likely acute cholecystitis
Persistent RUQ abdominal discomfort. CT scan imaging reviewed and demonstrates a moderately dilated gallbladder with cholelithiasis without significant radiographic evidence of gallbladder wall thickening, pericholecystic edema, or surrounding
inflammation. US abdomen and repeat labs pending. The natural history and pathophysiology of biliary and stone disease was discussed. Options for management including medical management with a low-fat diet and attempted further trial of
antibiotics versus cholecystectomy were considered and discussed. The pros and cons of both approaches was discussed. Specifically, we discussed failure of medical management and future attacks or episodes versus surgical risks. Recommend
cholecystectomy.
Plan for a laparoscopic cholecystectomy with possible cholangiogram. The procedure itself, as well as the risks, benefits, and alternatives was discussed. Specifically, we discussed the risks of bleeding, infection, injury to surrounding
structures (bowel, bile ducts), CBD injury, need for open procedure. Typical postprocedural recovery was discussed. Specifically, we discussed pain management, activity or functional restrictions, and the 10 to 20% risks of fluctuations in GI
function. All questions answered.
-- US abdomen pending, patient in process of obtaining this imaging
-- Tentative plan for laparoscopic cholecystectomy with cholangiogram
-- NPO, IVF
-- Abx: Zosyn
[2024-09-27] MEDS: ADVAIR HFA 115/21 MCG INHALER INH (08:07)
[2024-09-27] MEDS: SPIRIVA RESPIMAT 2.5 MCG INH (08:08)
[2024-09-27] MEDS: RESTASIS 0.05% OPHTHALMIC EMULSION 1 DROPS BOTH EYES ×2 (08:41→20:29)
[2024-09-27] MEDS: VISBIOME 1 CAP PO (08:42)
[2024-09-27] MEDS: HEPARIN SC ×2 (08:44→20:29)
--- NOTE | 2024-09-27 09:04 | W.PN.HOSP.TC ---
Addendum entered and electronically signed by Cherise Underwood MD 09/27/24 14:02:
Addendum
Blood culture is E coli ESBL, will change to meropenem for now
repeat blood culture
consult ID
Urinalysis is requested.
Isolation room.
End
Addendum entered and electronically signed by Cherise Underwood MD 09/27/24 09:17:
Addendum
Hyponatremia, mild, resolving
End
Original Note:
Today's Communication/Plan
-
She is complaining of polyuria/ urgency, positive blood cultures: stat urinalysis with cultures.
Repeat blood culture
f/w Abdominal US
Assessment / Plan
Assessment / Plan
Physical Exam
General: Conversant and Pain; No Fever or Chills
HEENT: Normocephalic, Anicteric, Moist mucous membranes, PERRLA, [place] Conjunctivae and No Ptosis
Respiratory: Clear; No Wheezes, Rales or Rhonchi
Cardiac: S1/S2 and Regular Rhythm
GI: Soft, Non Distended, Normal Bowel Sounds, not Tender
Rectal: No bleeding
Genito-urinary:no [place]
Musculoskeletal: No Clubbing, No Cyanosis, No Edema and Other (Herbedens nodes bilateral hands at DIP joints)
Skin: Warm and Dry; No Rash
Neuro: AO x 3, No Motor Deficits, Nonfocal/grossly intact, ; No Slurred Speech, Facial Droop, Tremors or Sedated
Psych: Calm
#Sepsis POA
impending shock concern for acute cholecystitis Vs UTI
Patient reports 3 days of fever Tmax 102F with nausea, vomiting, indigestion x 5 days
c/w IV Zosyn
Send for urine test and culture
Afebrile, WBC normalized. She denies abdominal pain this morning.
# Bacteremia
repeat blood culture
#XOCHITL
Likely due to infection and dehydration
creatinine is coming down
c/w IVF
#Septic shock
B is improving
c/w IVF
-Hold irbesartan 300 mg daily, furosemide 40 mg daily
#Chronic anemia suspect B12 deficiency
Hgb 10.5
-Continue B12 supplement
-Follow CBC
#Hx stage I diastolic dysfunction 2021
Monitor weight
-Follows with Dr. Ortiz [facility] cardiology
2D echo 08/26/2024: EF 50 to 55%, no wall abnormalities, normal LVS and LVSF, mild mitral regurgitation. Moderately calcified aortic valve without stenosis. Mild to moderate TR, PASP 35 mmHg
#Chronic COPD
-Patient follows with Dr. Krishnamurthy
-Continue Advair 2 puffs twice daily, albuterol
#History of JENNIFER Dx January 2022
-Patient took course of azithromycin, ethambutol, rifampin from January 2022 until January 2023
Patient follows with Dr. Malone it is
#HLD
-Check lipid profile
-Hold Zocor 20 mg at bedtime
#Diverticulosis/diverticulitis status post colectomy, rectal fistula repair and anal fissure repair Hx
#Osteoporosis hx
-Continue vitamin D supplementation with calcium, patient also gets Prolia 60 mg SQ every 6 months
#Insomnia
-Continue trazodone 100 mg at bedtime
#Hx glaucoma with stents placed in eyes 3 to 4 years ago
-Continue Restasis eyedrops
DVT prophylaxis
Subcu heparin
DNR per patient with son Sj Margo present and daughter Dea present at bedside
Total time spent to see the patient on the floor, examine the patient, review data and lab results, discuss treatment plan with patient, nursing staff around 55 minutes
Anticipated Discharge: > 48 hours
Subjective/Interval History
-
Date of Service: September 27, 2024
Objective Data
-
Labs:
Laboratory Results
09/27/24
06:28
WBC 9.3
Hgb 9.9 L
Hct 27.7 L
Plt Count 154
Sodium 135
Potassium 3.5
Chloride 102
Carbon Dioxide 18 L
BUN 32 H
Creatinine 1.4 H
Glucose 88
Calcium 7.2 L
Total Bilirubin 0.3
AST 34
ALT 21
Alkaline Phosphatase 56
Vital Signs:
Vital Signs
Temp Pulse Resp BP Pulse Ox
99.6 F 98 18 117/64 93
09/27/24 07:30 09/27/24 07:30 09/27/24 07:30 09/27/24 07:30 09/27/24 07:30
I&O
09/26/24 09/27/24 09/28/24
06:59 06:59 06:59
Intake Total 0 / 0
Balance 0 / 0
--- NOTE | 2024-09-27 10:12 | W.SUR.PREOP ---
Pre-Operative Surgical Note
-
I have examined this patient prior to the performance of the scheduled procedure.
The patient's condition is unchanged from the time of the current History and
Physical and the patient is able to undergo the scheduled procedure.
--- NOTE | 2024-09-27 12:42 | W.IMMPOSTOP ---
Addendum entered and electronically signed by Jovan Santana MD 09/27/24 12:51:
Dic#[id number]
Original Note:
Surgical Immed Post Op Note
-
Primary Surgeon: Max
Assisting Surgeon: AMERICO Burris
Pre-op Diagnosis: Cholecystitis
Post-op Diagnosis: Chronic cholecystitis
Procedure Performed: Laparoscopic cholecystectomy with IOC
Anesthesia Type: General
Specimen / Cultures:
1. Gallbladder
Estimated Blood Loss: 3 cc
Complications: None
Operative Findings:
1. Distended GB, thick sludge, omental and fatty adhesions at infundibulum, cecum and appendix within RUQ, gaseous distension soft no ischemia
2. Critical view of safety
3. IOC with no filling defects
4. Duct and artery taken with clips
--- NOTE | 2024-09-27 14:10 | PTCARENOTE ---
Patient received post-op with distended bladder she denied need to void. Bladder scan [address] Santana aware order obtain to straight cath and leave adorno in if >300ml . Adorno placed without difficulty output 1050ml of cloudy
sediment, urine send down for culture. Patient verbalize some discomfort to right back post op which quickly dissolved on its on.
[2024-09-27 14:11] LABS: Urine Albumin 2+ (Neg - Trace); Urine Bilirubin Negative (Negative); Urine Character Very Cloudy (Clear); Urine Color Yellow; Urine Glucose Negative (Negative); Urine Ketone 2+ (Negative); Urine Leukocyte 2+ (Negative); Urine Nitrite Negative (Negative); Urine Occult Blood 3+ (Negative); Urine Specific Gravity 1.015 (<1.030); Urine Urobilinogen Negative (Neg - 1+)
[2024-09-27 14:19] LABS: Urine White Cell >100 /HPF (0-5)
--- NOTE | 2024-09-27 14:39 | CON.ID ---
Consultation
-
Date/Time Consultation Requested: 09/27/2024 1356
Date/Time Consultation Performed: 09/27/2024 1440
Requesting Provider: Dr. Jenny Underwood
Performing Provider: Dr. Caroline East
Reason for Consultation: ESBL bacteremia
Chief Complaint / Past History
Chief Complaint
Nausea and vomiting, abdominal pain
History of Present Illness
84-year-old female with history of COPD, pulmonary JENNIFER treated, diverticulitis status post colectomy who presented to the hospital on September 26 with intractable nausea vomiting and poor appetite. She had fever up to 102 at home. Positive
diarrhea. Positive upper abdominal pain. Her white count was 13.2 with 8% bands. CAT scan of the abdomen pelvis was unremarkable without acute process. Abdominal ultrasound large amount of gallbladder sludge and few moderate-sized gallstones.
Patient was taken to the OR today status post laparoscopic cholecystectomy. Admission blood culture 1 out of 1 positive for ESBL E. coli. She denies urinary symptoms of dysuria, urgency or frequency. Postop today, she developed urinary retention
up to 1 L requiring Monsivais placement. Nausea now improved. She has some postop pain. Chronic cough is stable. Diarrhea is improving.
Past History
Additional Past Medical History:
COPD
Pulm JENNIFER s/p treatment completed 01/2024
HLD
Osteoporosis
Diverticulosis/diverticulitis status post colectomy
Rectal fistula repair, anal fissure
IBS
Skin SSC excision
Hysterectomy
Laminectomy
shoulder surgery
Carpal tunnel release
Allergy History:
codeine Allergy (Verified 09/26/24 11:49)
Nausea
Iodinated Contrast Media Allergy (Verified 09/26/24 11:49)
Hives
iodine Allergy (Verified 09/26/24 11:49)
Hives
Medications Reviewed: Yes
Current Antibiotics:
s/p Zosyn.
Meropenem
Social History
Tobacco: Former Smoker
Alcohol: None
Drug: None
Personal:
Living: Assisted Living
Family History
Family History: Not Pertinent
Review of Systems
Review of Systems
General: Fever, Chills and Change in Appetite
HEENT: Negative Sinus Problems, Headache or Pharyngitis
Cardiovascular: Negative Chest Pain or Dyspnea
Respiratory: Negative Dyspnea
Gasteroenterology: Nausea and Vomiting
Genital / Urological: Negative Dysuria, Hematuria or Flank Pain
Endocrine: Weakness
Skin / Hair / Nails: Negative Rash
All systems: All other systems were reviewed and were negative
Vital Signs
Temp Pulse Resp BP Pulse Ox
98.1 F 93 20 124/66 100
09/27/24 12:45 09/27/24 14:15 09/27/24 14:15 09/27/24 14:15 09/27/24 13:30
Physical Exam
Physical Exam
Constitutional: No Acute Distress
Eyes: No Conjunctival Hemorrhage and Sclera Anicteric
Cardiovascular: Regular Rate and S1/S2
Pulmonary: Clear
Gastrointestinal: Soft, Tender (RUQ), Non Distended and Decreased Bowel Sounds
Genito-Urinary: Monsivais and Clear Urine
Extremities: Negative Edema
Neurological: AO x 3
Lab / Diagnostic Study Results
09/27/24 06:28
09/27/24 06:28
Abs Immat Gran (auto) 0.1 10^3/uL (0-0.05) H 09/27/24 06:28
Absolute Neuts (auto) 7.5 10^3/uL (1.4-6.5) H 09/27/24 06:28
Absolute Lymphs (auto) 0.8 10^3/uL (1.2-3.4) L 09/27/24 06:28
Absolute Monos (auto) 0.8 10^3/uL (0.1-0.6) H 09/27/24 06:28
Absolute Basos (auto) 0.0 10^3/uL (0-0.2) 09/27/24 06:28
Total Counted 100 09/26/24 11:56
Immature Gran % 1.5 % (0-0.5) H 09/27/24 06:28
Neutrophils % 80.3 % (42.2-75.2) H 09/27/24 06:28
Lymphocytes % 8.6 % (20.5-51.1) L 09/27/24 06:28
Monocytes % 8.6 % (1.7-9.3) 09/27/24 06:28
Eosinophils % 0.7 % (0-6) 09/27/24 06:28
Basophils % 0.3 % (0-2) 09/27/24 06:28
Abs Neuts (Manual) 12.0 10^3/uL (1.4-6.5) H 09/26/24 11:56
Segmented Neutrophils 83 % (42-75) H 09/26/24 11:56
Band Neutrophils 8 % (0-3) H 09/26/24 11:56
Lymphocytes (Manual) 3 % (20-51) L 09/26/24 11:56
Lactic Acid < 0.5 mmol/L (0.7-2.0) L 09/26/24 17:55
Procalcitonin 12.75 ng/ml (0.0-0.25) H* 09/26/24 17:55
Ur Squamous Epith Cells Band Manager 09/27/24 09:03
Microbiology Results
Micro:
09/27/24 09:03 Urine Culture - Pending
Urine
09/26/24 17:32 Blood Culture - Preliminary
Blood/Venous Escherichia coli - ESBL
Gram Stain - Final
09/27/24 09:40 Blood Culture - Pending
Blood/Venous
09/27/24 05:49 C. difficile GDH Antigen & Toxins - Final
Feces/Stool Negative for toxigenic C.difficile
09/27/24 ABD US: Large amount of gallbladder sludge and a few moderate-sized gallstones. No secondary findings to suggest acute cholecystitis. Clinical and laboratory correlation recommended.
09/27/24 CT a/p: No CT evidence for an acute process in the abdomen or pelvis within the limitations of the lack of intravenous contrast. Mild cholelithiasis.
Assessment / Plan
# Acute on chronic cholecystitis
- s/p lap scottie 09/27
# ESBL-Ecoli bacteremia 11/16 set
- Suspect cholecystitis source vs urine source UA >100 wbc but pt without urinary sxs
- Meropenem 500mg IVq12 (renally adjusted)
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
COPD
Pulm JENNIFER s/p treatment completed 01/2024
HLD
Osteoporosis
Diverticulosis/diverticulitis status post colectomy
Rectal fistula repair, anal fissure
IBS
Skin SSC excision
Hysterectomy
Laminectomy
shoulder surgery
Carpal tunnel release
[2024-09-27] MEDS: SPIRIVA RESPIMAT 2.5 MCG 2 PUFF INH (16:42)
[2024-09-27] MEDS: STERILE WATER FOR INJECTION 10 ML IV (16:55)
[2024-09-27] MEDS: MERREM 500 MG IV (17:00)
[2024-09-27] MEDS: ADVAIR HFA 115/21 MCG INHALER 2 PUFF INH (19:39)
[2024-09-27] MEDS: DESYREL 100 MG PO (21:11)
[2024-09-28 03:50] VITALS: BP 116/64
[2024-09-28] MEDS: MERREM 500 MG IV ×2 (04:46→11:06)
[2024-09-28] MEDS: STERILE WATER FOR INJECTION 10 ML IV ×2 (04:47→11:02)
[2024-09-28] MEDS: SPIRIVA RESPIMAT 2.5 MCG 2 PUFF INH (06:07)
[2024-09-28] MEDS: ProAIR HFA INHALER 2 PUFF INH ×3 (06:07→20:12)
[2024-09-28] MEDS: ADVAIR HFA 115/21 MCG INHALER 2 PUFF INH ×2 (06:07→20:05)
[2024-09-28 06:16] LABS: % Basophils 0.2 % (0-2); % Immature Granulocytes 1.6 % (0-0.5); % Lymphocytes 11.2 % (20.5-51.1); % Monocytes 7.3 % (1.7-9.3); % Neutrophils 79.7 % (42.2-75.2); Absolute Immature Granulocytes 0.1 10^3/uL (0-0.05); Absolute Lymphocytes 0.9 10^3/uL (1.2-3.4); Absolute Monocytes 0.6 10^3/uL (0.1-0.6); Absolute Neutrophils 6.7 10^3/uL (1.4-6.5); Hematocrit 27.8 % (37.0-47.0); Hemoglobin 9.9 g/dL (12.0-16.0); Mean Corp Hgb Conc. 35.6 g/dL (33.0-37.0); Mean Corpuscular Hgb 33.7 pg (27.0-31.0); Mean Corpuscular Volume 94.6 fL (81.0-99.0); Mean Platelet Volume 9.6 fL (7.4-10.4); Nucleated Red Blood Cells % 0 %; Platelet Count 164 10^3/uL (130-400); Red Blood Cell Count 2.94 10^6/uL (4.20-5.40); White Blood Cell Count 8.3 10^3/uL (4.8-10.8)
[2024-09-28 06:39] LABS: ALT (SGPT) 33 U/L (0-35); AST (SGOT) 43 U/L (14-36); Albumin 2.6 g/dl (3.5-5.0); Alkaline Phosphatase 57 U/L (38-126); Blood Urea Nitrogen 30 mg/dl (7-17); Calcium 7.2 mg/dl (8.4-10.2); Carbon Dioxide 20 mmol/L (22-30); Chloride 105 mmol/L (98-107); Estimated Creatinine Clearance 28 ml/min; Glucose 135 mg/dl (70-99); Potassium 4.3 mmol/L (3.5-5.1); Sodium 135 mmol/L (135-145); Total Bilirubin 0.2 mg/dl (0.2-1.3); Total Protein 5.1 g/dl (6.3-8.2); eGFR 44.64
[2024-09-28 07:30] VITALS: BP 116/61
[2024-09-28 07:46] LABS: Folate > 20.0 ng/ml (2.76-20); Vitamin B12 > 1000 pg/ml (239-931)
[2024-09-28] MEDS: ProAIR HFA INHALER INH ×2 (08:56→15:16)
[2024-09-28] MEDS: RESTASIS 0.05% OPHTHALMIC EMULSION 1 DROPS BOTH EYES ×2 (09:17→21:36)
[2024-09-28] MEDS: VISBIOME 1 CAP PO (09:17)
[2024-09-28] MEDS: TESSALON PERLES 100 MG PO ×3 (09:17→21:34)
[2024-09-28] MEDS: MUCINEX 600 MG PO ×2 (09:17→21:34)
[2024-09-28] MEDS: HEPARIN 5000 UNITS SC (09:21)
--- NOTE | 2024-09-28 09:58 | W.PN.HOSP.TC ---
Today's Communication/Plan
-
Mild COPD exacerbation, add Mucinex Tessalon, change albuterol to [id number]. Not significant wheezes heard this morning
Repeat blood culture
Adjust meropenem dose according to improved renal function
Plan to resume diuretic therapy tomorrow
Assessment / Plan
Assessment / Plan
Physical Exam
General: Conversant and Pain; No Fever or Chills
HEENT: Normocephalic, Anicteric, Moist mucous membranes, PERRLA, [place] Conjunctivae and No Ptosis
Respiratory: Clear; No Wheezes, Rales or Rhonchi
Cardiac: S1/S2 and Regular Rhythm
GI: Soft, Non Distended, Normal Bowel Sounds, not Tender
Rectal: No bleeding
Genito-urinary:no Monsivais
Musculoskeletal: No Clubbing, No Cyanosis, No Edema and Other (Herbedens nodes bilateral hands at DIP joints)
Skin: Warm and Dry; No Rash
Neuro: AO x 3, No Motor Deficits, Nonfocal/grossly intact, ; No Slurred Speech, Facial Droop, Tremors or Sedated
Psych: Calm
# History of lack of appetite along with vomiting 3-4 times a day and indigestion
imaging studies showed signs of gall bladder disease
s/p alp scottie by surgery on 09/27.
#Sepsis POA
Stable now, afebrile
s/p ABx, IVF
# Bacteremia with E Coli
UTI With E Coli
Will repeat blood culture
Will re-adjust meropenem dose according to renal function
#XOCHITL
Likely due to infection and dehydration
creatinine is coming down
no need for more IVF as she has hx of CHF
#Septic shock
resolved.
-Hold irbesartan 300 mg daily, furosemide 40 mg daily, will resume in AM
#Chronic anemia with low MCV
Hgb 10.5
High Vitamin B12 and Folate
-Continue B12 supplement
- Will recommend to f/w PCP to do further work up
#Hx stage I diastolic dysfunction 2021
Monitor weight
-Follows with Dr. Ortiz [facility] cardiology
2D echo 08/26/2024: EF 50 to 55%, no wall abnormalities, normal LVS and LVSF, mild mitral regurgitation. Moderately calcified aortic valve without stenosis. Mild to moderate TR, PASP 35 mmHg
#Chronic COPD
IIn mild exacerbation
-Patient follows with Dr. Goddard
-Continue Advair 2 puffs twice daily, Spiriva, will change albuterol inhalation to QID and add Tessalon with Mucinex.
#History of JENNIFER Dx January 2022
-Patient took course of azithromycin, ethambutol, rifampin from January 2022 until January 2023
Patient follows with Dr. Malone it is
#HLD
-Held Zocor 20 mg at bedtime, resume upon dc
#Diverticulosis/diverticulitis status post colectomy, rectal fistula repair and anal fissure repair Hx
#Osteoporosis hx
-Continue vitamin D supplementation with calcium, patient also gets Prolia 60 mg SQ every 6 months upon dc
#Insomnia
-Continue trazodone 100 mg at bedtime
#Hx glaucoma with stents placed in eyes 3 to 4 years ago
-Continue Restasis eyedrops
DVT prophylaxis
Subcu heparin
DNR per patient with son Sj Margo present and daughter Dea present at bedside
Total time spent to see the patient on the floor, examine the patient, review data and lab results, discuss treatment plan with patient, consultants, nursing staff around 59 minutes
Anticipated Discharge: 24 - 48 hours
Subjective/Interval History
-
Date of Service: September 28, 2024
NO abdominal pain, not passing gas yet
She complains of cough
Objective Data
-
Labs:
Laboratory Results
09/28/24
05:38
WBC 8.3
Hgb 9.9 L
Hct 27.8 L
Plt Count 164
Sodium 135
Potassium 4.3
Chloride 105
Carbon Dioxide 20 L
BUN 30 H
Creatinine 1.2 H
Glucose 135 H
Calcium 7.2 L
Total Bilirubin 0.2
AST 43 H
ALT 33
Alkaline Phosphatase 57
Vital Signs:
Vital Signs
Temp Pulse Resp BP Pulse Ox
98.3 F 85 16 116/61 98
09/28/24 07:30 09/28/24 07:30 09/28/24 07:30 09/28/24 07:30 09/28/24 07:30
I&O
09/27/24 09/28/24 09/29/24
06:59 06:59 06:59
Intake Total 0 / 0 660 / 660
Output Total 1400 / 1400
Balance 0 / 0 -740 / -740
--- NOTE | 2024-09-28 10:29 | W.PN.GS2 ---
Today's Communication / Plan
-
s/o
Assessment / Plan
-
84F POD1 s/p lap scottie with cholangiogram
Doing well post-op
GS will s/o, pls call with ?s
DC info provided
Subjective Data
-
Date of Service: September 28, 2024
AFVSS, does not like low fat diet options, hungry, pain controlled, OOBTC
Objective Data
-
Intake and Output
09/27/24 09/28/24 09/29/24
06:59 06:59 06:59
Intake Total 0 / 0 660 / 660
Output Total 1400 / 1400
Balance 0 / 0 -740 / -740
Intake:
Oral fluids 0 / 0 560 / 560
IV fluids (Total) 100 / 100
Normosol 100 / 100
Output:
Urine, Monsivais 800 / 800
Urine, Voided 600 / 600
Other:
Number of approximated SMALL 1
amounts of urine
Number of unmeasured liquid
stools
Rectum 2
Vital Signs
Temp Pulse Resp BP Pulse Ox
98.3 F 85 16 116/61 98
09/28/24 07:30 09/28/24 07:30 09/28/24 07:30 09/28/24 07:30 09/28/24 07:30
Lab Results
09/28/24 05:38
09/28/24 05:38
Calcium 7.2 mg/dl (8.4-10.2) L 09/28/24 05:38
Total Bilirubin 0.2 mg/dl (0.2-1.3) 09/28/24 05:38
AST 43 U/L (14-36) H 09/28/24 05:38
ALT 33 U/L (0-35) 09/28/24 05:38
Alkaline Phosphatase 57 U/L (38-126) 09/28/24 05:38
Total Protein 5.1 g/dl (6.3-8.2) L 09/28/24 05:38
Albumin 2.6 g/dl (3.5-5.0) L 09/28/24 05:38
Physical Exam
-
Gen: NAD
Abd: soft, aprop ttp, incisions cdi with glue
[2024-09-28 11:25] VITALS: BP 111/60
--- NOTE | 2024-09-28 11:35 | CM ---
CM following re: discharge planning.
Reviewed pt's chart, met with pt.
Pt is an 84 year old female, admitted with primary dx of POD1 s/p lap scottie with cholangiogram.
Pt reports she has been living alone in an independent apartment at [facility] for 5 years, has 2 supportive children. 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 No DME, VN or SNF history.
PT and OT evaluations noted - home PT/OT recommended. pt is aware, expressed her agreement and she requested [facility]. A referral to [facility] made.
PCP: Rosalba Woods
Pharmacy: [facility].
Please fax discharger instructions to [facility] at [phone]
D/C plan: return back to her independent apartment at [facility] with [facility] and family support.
CM will follow with discharge plan updates as hospitalization progresses
--- NOTE | 2024-09-28 12:05 | W.PN.ID1 ---
Date of Service
Date of Service: September 28, 2024
Today's Communication
Continue meropenem.
Assessment / Plan
# Acute on chronic cholecystitis
- s/p lap scottie 09/27/24
# ESBL-Ecoli bacteremia 2 sets
- Suspect cholecystitis source vs urine source UA >100 wbc but pt without urinary sxs (unless urinary retention at time of admission)
- Repeat bcx in am
- Continue Meropenem 500mg IVq12 (renally adjusted), d2
# Post-op urinary retention
- Monsivais in place
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
COPD
Pulm JENNIFER s/p treatment completed 01/2024
HLD
Osteoporosis
Diverticulosis/diverticulitis status post colectomy
Rectal fistula repair, anal fissure
IBS
Skin SSC excision
Hysterectomy
Laminectomy
shoulder surgery
Carpal tunnel release
Chief Complaint
-: Bacteremia
Subjective / Review of Systems
Had COPD 'attack' this morning.
No pain.
Vital Signs / Physical Exam
Vital Signs
Vital Signs
Temp Pulse Resp BP Pulse Ox
98.1 F 90 16 111/60 98
09/28/24 11:25 09/28/24 11:25 09/28/24 11:25 09/28/24 11:25 09/28/24 11:25
Physical Exam
Constitutional: No Acute Distress and Comfortable
Eyes: No Conjunctival Hemorrhage and Sclera Anicteric
Pulmonary: Clear
Gastrointestinal: Soft, Non Tender and Non Distended
Genito-Urinary: Monsivais and Clear Urine
Extremities: Negative Edema
Neurological: AO x 3
Objective Data
Lab Data
Lab Results
09/28/24 05:38
09/28/24 05:38
Estimated Creat Clear 28 ml/min 09/28/24 05:38
Lactic Acid < 0.5 mmol/L (0.7-2.0) L 09/26/24 17:55
Total Bilirubin 0.2 mg/dl (0.2-1.3) 09/28/24 05:38
AST 43 U/L (14-36) H 09/28/24 05:38
ALT 33 U/L (0-35) 09/28/24 05:38
Alkaline Phosphatase 57 U/L (38-126) 09/28/24 05:38
Most recent labs reviewed.
Micro Results:
09/27/24 09:03 Urine Culture - Preliminary
Urine Escherichia coli
09/27/24 09:40 Blood Culture - Preliminary
Blood/Venous Positive culture in progress
Gram Stain - Preliminary
09/26/24 17:32 Blood Culture - Preliminary
Blood/Venous Escherichia coli - ESBL
Gram Stain - Final
09/27/24 05:49 C. difficile GDH Antigen & Toxins - Final
Feces/Stool Negative for toxigenic C.difficile
09/27/24 ABD US: Large amount of gallbladder sludge and a few moderate-sized gallstones. No secondary findings to suggest acute cholecystitis. Clinical and laboratory correlation recommended.
09/27/24 CT a/p: No CT evidence for an acute process in the abdomen or pelvis within the limitations of the lack of intravenous contrast. Mild cholelithiasis.
Care Review
Plan reviewed with: Physician (Dr. Underwood)
--- NOTE | 2024-09-28 12:33 | PN.CDI ---
Addendum entered and electronically signed by Cherise Underwood MD 09/28/24 13:24:
Septic shock is/was present and is a clinical diagnosis based on tachy, leukocytosis, bacteremia, low grade temp > 99.0, borderline low Bp( sbp at 101 )
Original Note:
CDI
- -
CDI:
Physician Documentation Request
Admit Date: 09/26/24 18:19
Dear Doctor Yasmine,
Please review the following and provide your response in the progress notes.
Clinical Indicators:
Documentation in the record on _09/28 PN_ includes the diagnosis of septic shock.
- 09/28 PN 'Sepsis POA...septic shock'
- 'XOCHITL...Likely due to infection and dehydration'
- 09/26 Lactic <0.5
- Documented systolic BP 100-120's
- 09/26-09/27 4L IVF given
-
Please clarify in the Progress Notes:
Septic shock is/was present and is a clinical diagnosis based on (please include this additional support in the medical record)
After study Septic shock has been ruled out and a more appropriate diagnosis for this patient's condition is Severe sepsis
Other (please specify)
Recognized standard criteria for this condition and other associated definitions:
�Bacteremia
-Abnormal laboratory test does not indicate a clinically ill patient
�Sepsis
-Systemic manifestations of infection, with 2 or more SIRS criteria which include:
-Fever > 100.4��F or hypothermia < 96.8��F
-Leukocytosis WBC > 12,000 or leukopenia, WBC < 4,000, or > 10% bands
-Tachycardia- > 90 beats/minute
-Tachypnea- RR > 20 breaths/minute or PaCO2 < 32mmHg
Source: Merck Manual 2013
-Documentation should include the known or suspected organism, and the underlying infection, such as UTI or pneumonia
�Severe Sepsis
-Sepsis with associated acute organ dysfunction, such as renal or respiratory failure
-Documentation should indicate the association between the sepsis and the organ dysfunction
�Septic Shock
-Severe sepsis with associated with circulatory failure, evidenced by hypotension and hypoperfusion
Use of terms such as suspected, likely, concern for, or probable (associated with a specific diagnosis that is being evaluated, monitored, or treated as if it exists) are acceptable and can be coded in the inpatient setting, when documented at the
time of discharge.
Thank you,
Rhianna Cutler RN
CDI Specialist
Please use your independent medical judgment in providing your response.
[2024-09-28 16:00] VITALS: BP 126/60
[2024-09-28] MEDS: MERREM 1000 MG IV (16:26)
[2024-09-28] MEDS: STERILE WATER FOR INJECTION 20 ML IV ×2 (16:26)
[2024-09-28 19:19] VITALS: BP 109/60
[2024-09-28] MEDS: HEPARIN SC (21:34)
[2024-09-28] MEDS: DESYREL 100 MG PO (21:34)
[2024-09-28 22:35] VITALS: BP 108/53
[2024-09-29] VITALS (8 sets, daily range): BP systolic 101–131; BP diastolic 59–82; PULSE 88–95; O2SAT 98
[2024-09-29] MEDS: STERILE WATER FOR INJECTION 20 ML IV (05:40)
[2024-09-29] MEDS: MERREM 1000 MG IV (05:41)
[2024-09-29 05:53] LABS: % Basophils 0.2 % (0-2); % Eosinophils 0.2 % (0-6); % Immature Granulocytes 2.4 % (0-0.5); % Lymphocytes 14.8 % (20.5-51.1); % Monocytes 6.9 % (1.7-9.3); % Neutrophils 75.5 % (42.2-75.2); Absolute Immature Granulocytes 0.3 10^3/uL (0-0.05); Absolute Lymphocytes 1.6 10^3/uL (1.2-3.4); Absolute Monocytes 0.8 10^3/uL (0.1-0.6); Absolute Neutrophils 8.3 10^3/uL (1.4-6.5); Hematocrit 26.5 % (37.0-47.0); Hemoglobin 9.8 g/dL (12.0-16.0); Mean Corpuscular Hgb 34.1 pg (27.0-31.0); Mean Corpuscular Volume 92.3 fL (81.0-99.0); Mean Platelet Volume 9.4 fL (7.4-10.4); Nucleated Red Blood Cells % 0 %; Platelet Count 182 10^3/uL (130-400); Red Blood Cell Count 2.87 10^6/uL (4.20-5.40); White Blood Cell Count 10.9 10^3/uL (4.8-10.8)
[2024-09-29 06:51] LABS: ALT (SGPT) 40 U/L (0-35); AST (SGOT) 39 U/L (14-36); Albumin 2.5 g/dl (3.5-5.0); Alkaline Phosphatase 59 U/L (38-126); Blood Urea Nitrogen 26 mg/dl (7-17); Calcium 7.2 mg/dl (8.4-10.2); Carbon Dioxide 20 mmol/L (22-30); Chloride 106 mmol/L (98-107); Estimated Creatinine Clearance 30 ml/min; Glucose 91 mg/dl (70-99); Potassium 3.7 mmol/L (3.5-5.1); Sodium 136 mmol/L (135-145); Total Bilirubin 0.4 mg/dl (0.2-1.3); eGFR 49.55
[2024-09-29] MEDS: ADVAIR HFA 115/21 MCG INHALER 2 PUFF INH ×2 (07:30→20:21)
[2024-09-29] MEDS: ProAIR HFA INHALER 2 PUFF INH ×4 (07:31→20:21)
[2024-09-29] MEDS: SPIRIVA RESPIMAT 2.5 MCG 2 PUFF INH (07:31)
[2024-09-29] MEDS: HEPARIN SC ×2 (08:25→22:22)
[2024-09-29] MEDS: RESTASIS 0.05% OPHTHALMIC EMULSION 1 DROPS BOTH EYES ×2 (08:25→22:21)
[2024-09-29] MEDS: MUCINEX 600 MG PO ×2 (08:25→22:21)
[2024-09-29] MEDS: TESSALON PERLES 100 MG PO ×3 (08:25→22:21)
[2024-09-29] MEDS: VISBIOME 1 CAP PO (08:26)
[2024-09-29] MEDS: LASIX 40 MG PO (08:26)
--- NOTE | 2024-09-29 11:15 | CM ---
Addendum entered by Nelly Olivares 09/29/24 16:16:
[facility]

Addendum entered by Nelly Olivares 09/29/24 16:06:
Met with patient and her daughter, Dea, at the bedside to discuss discharge plan
1. Medication and Equipment for IV infusion will be delivered to the patient's home on Thursday evening
2. Sonali from [facility] will contact patient's daughter when RN's Thursday arrival time is known
Daughter was given [facility] 08/06 phone number
Per Sun from [facility] patient insurance will cover IV therapy 100%
Patient will need to receive daily dose of ertapenem on Thursday prior to discharge
Addendum entered by Nelly Olivares 09/29/24 14:33:
Plan: Discharge to home on Thursday with home health care and home infusion services
Prescription for Antibiotic, demographics, and clinicals faxed to Sun @ [facility] # [phone]
Spoke with Sonali Sc[facility] liaison via phone; Prescription for Antibiotic, Face Sheet and CM referral faxed to Sonali Rogers @ [facility] # [phone]
Original Note:
Met with patient to discuss discharge plan; explained that PT recommended home therpy; patient agreeable
Sent home health referral to [facility] via
Plan: discharge to home when medically stable with home health services
--- NOTE | 2024-09-29 11:24 | W.PN.HOSP.TC ---
Today's Communication/Plan
-
C Diff with report of loose stools
c/w breathing treatments
Ambulate, re-consult PT/OT
Assessment / Plan
Assessment / Plan
Physical Exam
General: Conversant and Pain; No Fever or Chills
HEENT: Normocephalic, Anicteric, Moist mucous membranes, PERRLA, [place] Conjunctivae and No Ptosis
Respiratory: Clear; No Wheezes, Rales or Rhonchi
Cardiac: S1/S2 and Regular Rhythm
GI: Soft, Non Distended, Normal Bowel Sounds, not Tender
Rectal: No bleeding
Genito-urinary:no Monsivais
Musculoskeletal: No Clubbing, No Cyanosis, No Edema and Other (Herbedens nodes bilateral hands at DIP joints)
Skin: Warm and Dry; No Rash
Neuro: AO x to surroundings. No Motor Deficits, Nonfocal/grossly intact, ; No Slurred Speech, Facial Droop, Tremors or Sedated
Psych: Calm
# Loose BM
will order c diff
No abd pain or nausea
No fevers
# History of lack of appetite along with vomiting 3-4 times a day and indigestion
imaging studies showed signs of gall bladder disease
s/p alp scottie by surgery on 09/27.
#Sepsis POA
Stable now, afebrile
s/p ABx, IVF
# Bacteremia with E Coli
UTI With E Coli
Repeat blood culture: no growth
Will re-adjust meropenem dose according to renal function
#XOCHITL
Likely due to infection and dehydration
creatinine is coming down
no need for more IVF as she has hx of CHF. OK to resume Lasix
#Septic shock
resolved.
-Hold irbesartan 300 mg daily, furosemide 40 mg daily, will resume in AM
#Chronic anemia with low MCV
Hgb 10.5
High Vitamin B12 and Folate
-Continue B12 supplement
- Will recommend to f/w PCP to do further work up
#Hx stage I diastolic dysfunction 2021
Monitor weight
-Follows with Dr. Ortiz [facility] cardiology
2D echo 08/26/2024: EF 50 to 55%, no wall abnormalities, normal LVS and LVSF, mild mitral regurgitation. Moderately calcified aortic valve without stenosis. Mild to moderate TR, PASP 35 mmHg
#Chronic COPD
Seems to respond well to breathing treatment. Lungs no wheezes
-Patient follows with Dr. Goddard
-Continue Advair 2 puffs twice daily, Spiriva, albuterol inhalation to QID and added Tessalon with Mucinex.
#History of JENNIFER Dx January 2022
-Patient took course of azithromycin, ethambutol, rifampin from January 2022 until January 2023
Patient follows with Dr. Malone it is
#HLD
-Held Zocor 20 mg at bedtime, resume upon dc
#Diverticulosis/diverticulitis status post colectomy, rectal fistula repair and anal fissure repair Hx
#Osteoporosis hx
-Continue vitamin D supplementation with calcium, patient also gets Prolia 60 mg SQ every 6 months upon dc
#Insomnia
-Continue trazodone 100 mg at bedtime
#Hx glaucoma with stents placed in eyes 3 to 4 years ago
-Continue Restasis eyedrops
DVT prophylaxis
Subcu heparin
DNR
Total time spent to see the patient on the floor, examine the patient, review data and lab results, discuss treatment plan with patient, consultants, nursing staff around 59 minutes
Anticipated Discharge: 24 - 48 hours
Subjective/Interval History
-
Date of Service: September 29, 2024
No abd pain
No nausea
Loose bowel movements
Objective Data
-
Labs:
Laboratory Results
09/29/24 09/29/24
05:31 05:32
WBC 10.9 H
Hgb 9.8 L
Hct 26.5 L
Plt Count 182
Sodium 136
Potassium 3.7
Chloride 106
Carbon Dioxide 20 L
BUN 26 H
Creatinine 1.1 H
Glucose 91
Calcium 7.2 L
Total Bilirubin 0.4
AST 39 H
ALT 40 H
Alkaline Phosphatase 59
Vital Signs:
Vital Signs
Temp Pulse Resp BP Pulse Ox
97.9 F 89 16 131/70 96
09/29/24 10:59 09/29/24 11:24 09/29/24 11:24 09/29/24 10:59 09/29/24 11:24
I&O
09/28/24 09/29/24 09/30/24
06:59 06:59 06:59
Intake Total 660 / 660 1260 / 1260
Output Total 1400 / 1400 1999 / 1999
Balance -740 / -740 -740 / -740
--- NOTE | 2024-09-29 13:49 | W.PN.ID1 ---
Date of Service
Date of Service: September 29, 2024
Today's Communication
Replace meropenem with Ertapenem through 10/07/24.
Assessment / Plan
# Acute on chronic cholecystitis
- s/p lap scottie 09/27/24
# ESBL-Ecoli bacteremia 2 sets
- Suspect cholecystitis source vs urine source UA >100 wbc but pt without urinary sxs (unless urinary retention at time of admission)
- Repeat bcx today pending.
- Replace meropenem with Ertapenem through 10/07/24.
- Place midline tomorrow.
- Home Infusion sheet submitted to insurance case manager.
# Post-op urinary retention
- Monsivais in place
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
COPD
Pulm JENNIFER s/p treatment completed 01/2024
HLD
Osteoporosis
Diverticulosis/diverticulitis status post colectomy
Rectal fistula repair, anal fissure
IBS
Skin SSC excision
Hysterectomy
Laminectomy
shoulder surgery
Carpal tunnel release
Chief Complaint
-: Bacteremia
Subjective / Review of Systems
c/o persistent cough productive of phlegm
Vital Signs / Physical Exam
Vital Signs
Vital Signs
Temp Pulse Resp BP Pulse Ox
97.9 F 89 16 131/70 96
09/29/24 10:59 09/29/24 11:24 09/29/24 11:24 09/29/24 10:59 09/29/24 11:24
Physical Exam
Constitutional: No Acute Distress and Comfortable
Eyes: No Conjunctival Hemorrhage
Cardiovascular: Regular Rate and S1/S2
Pulmonary: Clear; Negative Wheezes
Gastrointestinal: Soft, Non Tender and Non Distended
Extremities: Negative Edema
Neurological: AO x 3
Objective Data
Lab Data
Lab Results
09/29/24 05:31
09/29/24 05:32
Estimated Creat Clear 30 ml/min 09/29/24 05:32
Lactic Acid < 0.5 mmol/L (0.7-2.0) L 09/26/24 17:55
Total Bilirubin 0.4 mg/dl (0.2-1.3) 09/29/24 05:32
AST 39 U/L (14-36) H 09/29/24 05:32
ALT 40 U/L (0-35) H 09/29/24 05:32
Alkaline Phosphatase 59 U/L (38-126) 09/29/24 05:32
Most recent labs reviewed.
Micro Results:
09/29/24 13:26 C. difficile GDH Antigen & Toxins - Pending
Feces/Stool
09/27/24 09:03 Urine Culture - Final
Urine Escherichia coli - ESBL
09/27/24 09:40 Blood Culture - Preliminary
Blood/Venous Escherichia coli - ESBL
Gram Stain - Preliminary
09/26/24 17:32 Blood Culture - Final
Blood/Venous Escherichia coli - ESBL
Gram Stain - Final
09/29/24 05:32 Blood Culture - Pending
Blood/Venous
09/27/24 05:49 C. difficile GDH Antigen & Toxins - Final
Feces/Stool Negative for toxigenic C.difficile
09/27/24 ABD US: Large amount of gallbladder sludge and a few moderate-sized gallstones. No secondary findings to suggest acute cholecystitis. Clinical and laboratory correlation recommended.
09/27/24 CT a/p: No CT evidence for an acute process in the abdomen or pelvis within the limitations of the lack of intravenous contrast. Mild cholelithiasis.
[2024-09-29] MEDS: IMODIUM 2 MG PO ×2 (14:27→17:34)
[2024-09-29] MEDS: INVANZ 55 MG IV (14:27)
[2024-09-29] MEDS: DESYREL 100 MG PO (22:22)
[2024-09-30] VITALS (7 sets, daily range): BP systolic 104–146; BP diastolic 56–94; PULSE 101
[2024-09-30 05:35] LABS: % Basophils 0.4 % (0-2); % Eosinophils 0.7 % (0-6); % Immature Granulocytes 3.5 % (0-0.5); % Lymphocytes 21.5 % (20.5-51.1); % Monocytes 6.7 % (1.7-9.3); % Neutrophils 67.2 % (42.2-75.2); Absolute Eosinophils 0.1 10^3/uL (0-0.7); Absolute Immature Granulocytes 0.4 10^3/uL (0-0.05); Absolute Lymphocytes 2.1 10^3/uL (1.2-3.4); Absolute Monocytes 0.7 10^3/uL (0.1-0.6); Absolute Neutrophils 6.7 10^3/uL (1.4-6.5); Hematocrit 25.9 % (37.0-47.0); Hemoglobin 9.2 g/dL (12.0-16.0); Mean Corp Hgb Conc. 35.5 g/dL (33.0-37.0); Mean Corpuscular Hgb 32.6 pg (27.0-31.0); Mean Corpuscular Volume 91.8 fL (81.0-99.0); Mean Platelet Volume 9.3 fL (7.4-10.4); Nucleated Red Blood Cells % 0 %; Platelet Count 187 10^3/uL (130-400); Red Blood Cell Count 2.82 10^6/uL (4.20-5.40); White Blood Cell Count 9.9 10^3/uL (4.8-10.8)
[2024-09-30 05:56] LABS: ALT (SGPT) 33 U/L (0-35); AST (SGOT) 29 U/L (14-36); Albumin 2.5 g/dl (3.5-5.0); Alkaline Phosphatase 54 U/L (38-126); Blood Urea Nitrogen 22 mg/dl (7-17); Calcium 7.7 mg/dl (8.4-10.2); Carbon Dioxide 24 mmol/L (22-30); Chloride 102 mmol/L (98-107); Estimated Creatinine Clearance 33 ml/min; Glucose 92 mg/dl (70-99); Potassium 3.3 mmol/L (3.5-5.1); Sodium 135 mmol/L (135-145); Total Bilirubin 0.5 mg/dl (0.2-1.3); Total Protein 4.9 g/dl (6.3-8.2); eGFR 55.55
[2024-09-30] MEDS: ADVAIR HFA 115/21 MCG INHALER 2 PUFF INH ×2 (07:40→19:22)
[2024-09-30] MEDS: ProAIR HFA INHALER 2 PUFF INH ×3 (07:41→15:04)
[2024-09-30] MEDS: SPIRIVA RESPIMAT 2.5 MCG 2 PUFF INH (07:41)
[2024-09-30] MEDS: MUCINEX 600 MG PO ×2 (07:49→21:23)
[2024-09-30] MEDS: RESTASIS 0.05% OPHTHALMIC EMULSION 1 DROPS BOTH EYES ×2 (07:49→21:23)
[2024-09-30] MEDS: HEPARIN SC ×2 (07:49→21:23)
[2024-09-30] MEDS: VISBIOME 1 CAP PO (07:49)
[2024-09-30] MEDS: LASIX 40 MG PO (07:49)
[2024-09-30] MEDS: TESSALON PERLES 100 MG PO ×3 (07:49→21:24)
--- NOTE | 2024-09-30 09:43 | W.PN.HOSP.TC ---
Today's Communication/Plan
-
Likely dc in am
Replace K
c/w IV Abx
Midline today
PRN Imodium
Assessment / Plan
Assessment / Plan
Physical Exam
General: Conversant and Pain; No Fever or Chills
HEENT: Normocephalic, Anicteric, Moist mucous membranes, PERRLA, [place] Conjunctivae and No Ptosis
Respiratory: Clear; No Wheezes, Rales or Rhonchi
Cardiac: S1/S2 and Regular Rhythm
GI: Soft, Non Distended, Normal Bowel Sounds, not Tender
Rectal: No bleeding
Genito-urinary:no Monsivais
Musculoskeletal: No Clubbing, No Cyanosis, No Edema and Other (Herbedens nodes bilateral hands at DIP joints)
Skin: Warm and Dry; No Rash
Neuro: AO x to surroundings. No Motor Deficits, Nonfocal/grossly intact, ; No Slurred Speech, Facial Droop, Tremors or Sedated
Psych: Calm
# Loose BM
negative c Diff
Order PRN Imodium, pt uses it at home
No abd pain or nausea
No fevers
# History of lack of appetite along with vomiting 3-4 times a day and indigestion
imaging studies showed signs of gall bladder disease
s/p alp cholecystectomy by surgery on 09/27.
#Sepsis POA
Stable now, afebrile
s/p ABx, IVF
# Bacteremia with E Coli
UTI With E Coli
Midline 09/30
Repeat blood culture: no growth
Per ID: Ertapenem through 10/07/24. Appreciate ID help.
# Hypokalemia, replace
#XOCHITL
Likely due to infection and dehydration
creatinine is coming down
no need for more IVF as she has hx of CHF. OK to resume Lasix
#Septic shock
resolved.
-Hold irbesartan 300 mg daily, furosemide 40 mg daily, will resume in AM
#Chronic anemia with low MCV
Hgb 10.5
High Vitamin B12 and Folate
-Continue B12 supplement
- Will recommend to f/w PCP to do further work up
#Hx stage I diastolic dysfunction 2021
Monitor weight
-Follows with Dr. Ortiz [facility] cardiology
2D echo 08/26/2024: EF 50 to 55%, no wall abnormalities, normal LVS and LVSF, mild mitral regurgitation. Moderately calcified aortic valve without stenosis. Mild to moderate TR, PASP 35 mmHg
#Chronic COPD
Seems to respond well to breathing treatment. Lungs no wheezes
-Patient follows with Dr. Goddard
-Continue Advair 2 puffs twice daily, Spiriva, albuterol inhalation to QID and added Tessalon with Mucinex.
#History of JENNIFER Dx January 2022
-Patient took course of azithromycin, ethambutol, rifampin from January 2022 until January 2023
Patient follows with Dr. Malone it is
#HLD
-Held Zocor 20 mg at bedtime, resume upon dc
#Diverticulosis/diverticulitis status post colectomy, rectal fistula repair and anal fissure repair Hx
#Osteoporosis hx
-Continue vitamin D supplementation with calcium, patient also gets Prolia 60 mg SQ every 6 months upon dc
#Insomnia
-Continue trazodone 100 mg at bedtime
#Hx glaucoma with stents placed in eyes 3 to 4 years ago
-Continue Restasis eyedrops
DVT prophylaxis
Subcu heparin
DNR
Total time spent to see the patient on the floor, examine the patient, review data and lab results, discuss treatment plan with patient, consultants, nursing staff around 59 minutes
Anticipated Discharge: Within 24 hours
Subjective/Interval History
-
Date of Service: September 30, 2024
She feels better
less diarrhea
mild abd discomfort
No chest pain
No sob
Still cough
Objective Data
-
Labs:
Laboratory Results
09/30/24
05:18
WBC 9.9
Hgb 9.2 L
Hct 25.9 L
Plt Count 187
Sodium 135
Potassium 3.3 L
Chloride 102
Carbon Dioxide 24
BUN 22 H
Creatinine 1.0
Glucose 92
Calcium 7.7 L
Total Bilirubin 0.5
AST 29
ALT 33
Alkaline Phosphatase 54
Vital Signs:
Vital Signs
Temp Pulse Resp BP Pulse Ox
97.9 F 97 18 133/63 96
09/30/24 07:10 09/30/24 07:49 09/30/24 07:49 09/30/24 07:49 09/30/24 07:49
I&O
09/29/24 09/30/24 10/01/24
06:59 06:59 06:59
Intake Total 1260 / 1260 1620 / 1620
Output Total 1999 / 1999
Balance -740 / -740 1620 / 1620
[2024-09-30] MEDS: KCL 40 MEQ PO (10:25)
[2024-09-30] MEDS: INVANZ 60 MG IV (13:36)
--- NOTE | 2024-09-30 13:58 | CM ---
Addendum entered by Nelly Olivares 09/30/24 14:37:
Plan: Discharge to home tomorrow with [facility] and [facility]

Addendum entered by Nelly Olivares 09/30/24 14:33:
Met with patient to confirm discharge plan
Daughter will transport her home
IMM benefit explained; form signed @ 1425
Original Note:
Midline catheter documentation faxed to Zonia @ [facility] # [phone]; and [facility] #[phone]
Plan: Discharge to home tomorrow with [facility] and [facility]
--- NOTE | 2024-09-30 14:38 | W.PN.ID1 ---
Date of Service
Date of Service: September 30, 2024
Today's Communication
Continue Ertapenem 1g IV q24h through 10/07/24.
Assessment / Plan
# Acute on chronic cholecystitis
- s/p lap scottie 09/27/24
# ESBL-Ecoli bacteremia 2 sets
- cholecystitis source vs urine source UA >100 wbc but pt without urinary sxs (unless urinary retention at time of admission)
- Repeat bcx negative.
- Continue Ertapenem 1g IV q24h through 10/07/24.
- midline in place
- Home Infusion sheet submitted to case worker.
# Post-op urinary retention resolved
- Monsivais dc'd
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
COPD
Pulm JENNIFER s/p treatment completed 01/2024
HLD
Osteoporosis
Diverticulosis/diverticulitis status post colectomy
Rectal fistula repair, anal fissure
IBS
Skin SSC excision
Hysterectomy
Laminectomy
shoulder surgery
Carpal tunnel release
Chief Complaint
-: Bacteremia
Subjective / Review of Systems
Cough stable.
Voiding fine.
Will go home tomorrow.
Vital Signs / Physical Exam
Vital Signs
Vital Signs
Temp Pulse Resp BP Pulse Ox
98.6 F 96 17 128/71 96
09/30/24 11:04 09/30/24 11:04 09/30/24 11:04 09/30/24 11:04 09/30/24 11:04
Physical Exam
Constitutional: No Acute Distress and Comfortable
Gastrointestinal: Soft, Non Tender and Non Distended
Genito-Urinary: Negative CVA Tenderness
Extremities: Negative Edema
Neurological: AO x 3
Objective Data
Lab Data
Lab Results
09/30/24 05:18
09/30/24 05:18
Estimated Creat Clear 33 ml/min 09/30/24 05:18
Lactic Acid < 0.5 mmol/L (0.7-2.0) L 09/26/24 17:55
Total Bilirubin 0.5 mg/dl (0.2-1.3) 09/30/24 05:18
AST 29 U/L (14-36) 09/30/24 05:18
ALT 33 U/L (0-35) 09/30/24 05:18
Alkaline Phosphatase 54 U/L (38-126) 09/30/24 05:18
Most recent labs reviewed.
Micro Results:
09/29/24 05:32 Blood Culture - Preliminary
Blood/Venous No Growth in 24 hours- Final report to follow
09/29/24 13:26 C. difficile GDH Antigen & Toxins - Final
Feces/Stool Negative for toxigenic C.difficile
09/27/24 09:03 Urine Culture - Final
Urine Escherichia coli - ESBL
09/27/24 09:40 Blood Culture - Preliminary
Blood/Venous Escherichia coli - ESBL
Gram Stain - Preliminary
09/26/24 17:32 Blood Culture - Final
Blood/Venous Escherichia coli - ESBL
Gram Stain - Final
09/27/24 05:49 C. difficile GDH Antigen & Toxins - Final
Feces/Stool Negative for toxigenic C.difficile
09/27/24 ABD US: Large amount of gallbladder sludge and a few moderate-sized gallstones. No secondary findings to suggest acute cholecystitis. Clinical and laboratory correlation recommended.
09/27/24 CT a/p: No CT evidence for an acute process in the abdomen or pelvis within the limitations of the lack of intravenous contrast. Mild cholelithiasis.
Care Review
Plan reviewed with: Physician (Dr. Underwood)
[2024-09-30] MEDS: ProAIR HFA INHALER INH (19:24)
[2024-09-30] MEDS: DESYREL 100 MG PO (21:23)
[2024-10-01 03:00] VITALS: BP 121/60
[2024-10-01 07:35] VITALS: BP 123/66
[2024-10-01] MEDS: HEPARIN SC (08:31)
[2024-10-01] MEDS: ProAIR HFA INHALER 2 PUFF INH ×2 (08:34→11:50)
[2024-10-01] MEDS: ADVAIR HFA 115/21 MCG INHALER 2 PUFF INH (08:35)
[2024-10-01] MEDS: LASIX 40 MG PO (08:38)
[2024-10-01] MEDS: TESSALON PERLES 100 MG PO (08:38)
[2024-10-01] MEDS: MUCINEX 600 MG PO (08:38)
[2024-10-01] MEDS: VISBIOME 1 CAP PO (08:39)
[2024-10-01] MEDS: RESTASIS 0.05% OPHTHALMIC EMULSION 1 DROPS BOTH EYES (08:39)
[2024-10-01] MEDS: SPIRIVA RESPIMAT 2.5 MCG 2 PUFF INH (08:41)
--- NOTE | 2024-10-01 10:02 | W.PN.HOSP.TC ---
Today's Communication/Plan
-
dc
Assessment / Plan
Assessment / Plan
Physical Exam
General: Conversant and Pain; No Fever or Chills
HEENT: Normocephalic, Anicteric, Moist mucous membranes, PERRLA, [place] Conjunctivae and No Ptosis
Respiratory: Clear; No Wheezes , Rales or Rhonchi
Cardiac: S1/S2 and Regular Rhythm
GI: Soft, Non Distended, Normal Bowel Sounds, not Tender
Rectal: No bleeding
Genito-urinary:no Monsivais
Musculoskeletal: No Clubbing, No Cyanosis, No Edema and Other (Herbedens nodes bilateral hands at DIP joints)
Skin: Warm and Dry; No Rash
Neuro: AO x to surroundings. No Motor Deficits, Nonfocal/grossly intact, ; No Slurred Speech, Facial Droop, Tremors or Sedated
Psych: Calm
# Loose BM
negative c Diff
Ordered home dose of PRN Imodium, pt uses it at home
No abd pain or nausea
No abd tenderness
No fevers
# Chronic cholecystitis. History of lack of appetite along with vomiting 3-4 times a day and indigestion
imaging studies showed signs of gall bladder disease
s/p alp cholecystectomy by surgery on 09/27.
#Sepsis POA
Stable now, afebrile
s/p ABx, IVF
# Bacteremia with E Coli
UTI With E Coli
Midline 09/30
Repeat blood culture: no growth
Per ID: Ertapenem through 10/07/24. Appreciate ID help.
# Hypokalemia, replaced
#XOCHITL, resoled.
Likely due to infection and dehydration
creatinine is normal
no need for more IVF as she has hx of CHF. Resumed Lasix
#Septic shock
resolved.
-Hold irbesartan 300 mg daily, furosemide 40 mg daily, will resume in AM
#Chronic anemia with low MCV
Hgb 10.5
High Vitamin B12 and Folate
-Continue B12 supplement
- Will recommend to f/w PCP to do further work up
#Hx stage I diastolic dysfunction 2021
Monitor weight
-Follows with Dr. Ortiz [facility] cardiology
2D echo 08/26/2024: EF 50 to 55%, no wall abnormalities, normal LVS and LVSF, mild mitral regurgitation. Moderately calcified aortic valve without stenosis. Mild to moderate TR, PASP 35 mmHg
#Chronic COPD
Seems to respond well to breathing treatment. Lungs no wheezes
-Patient follows with Dr. Goddard
-Continue Advair 2 puffs twice daily, Spiriva, albuterol inhalation to QID and added Tessalon with Mucinex.
#History of JENNIFER Dx January 2022
-Patient took course of azithromycin, ethambutol, rifampin from January 2022 until January 2023
Patient follows with Dr. Malone it is
#HLD
-Held Zocor 20 mg at bedtime, resume upon dc
#Diverticulosis/diverticulitis status post colectomy, rectal fistula repair and anal fissure repair Hx
#Osteoporosis hx
-Continue vitamin D supplementation with calcium, patient also gets Prolia 60 mg SQ every 6 months upon dc
#Insomnia
-Continue trazodone 100 mg at bedtime
#Hx glaucoma with stents placed in eyes 3 to 4 years ago
-Continue Restasis eyedrops
DVT prophylaxis
Subcu heparin
DNR
Total discharge time spent to see the patient on the floor, examine the patient, review data and lab results, discuss discharge plan with patient, consultants, special education case manager, nursing staff around 65 minutes
Anticipated Discharge: Today
Subjective/Interval History
-
Date of Service: October 01, 2024
Doing well
Diana bd pain
No fever
No chest pain
No diarrhea
Tolerating diet
No sob, same cough as at home
She feels ready to go home
Objective Data
-
Vital Signs:
Vital Signs
Temp Pulse Resp BP Pulse Ox
98.0 F 93 16 123/66 97
10/01/24 07:35 10/01/24 08:39 10/01/24 08:39 10/01/24 08:38 10/01/24 08:39
I&O
09/30/24 10/01/24 10/02/24
06:59 06:59 06:59
Intake Total 1620 / 1620 1500 / 1500
Balance 1620 / 1620 1500 / 1500
--- NOTE | 2024-10-01 11:15 | CM ---
Addendum entered by Brooke Robison RN 10/01/24 12:18:
RW script issued to PT and PT provided patient with RW.
Plan home today with [facility] for home IV Abx, with [facility], with RW.
Original Note:
Patient from [facility] with order for home IV Infusion with Ertapenem 1g IV q24h through 10/07/24. Midline.
Spoke with [facility] (fax [phone]); the patient is setup to see their nurse tomorrow early afternoon- confirmed that patient is receiving IV Ertapenum around 2pm here today, per nurse [place].
Spoke with Caitlyn Nunez [facility] (fax [phone]); she confirms delivery of IV Abx & supplies to patient's home this evening.
Met with patient and spoke with daughter Dea by phone; patient had been confused about d/c plans today thinking she could leave at noon today before IV Abx administered- she now understands she needs to wait today until IV Abx is completed.
Reviewed all plans with daughter for delivery Abx/supplies this evening through [facility], and confirmed [facility] for tomorrow afternoon. IMM completed. Daughter confirms she will transport the patient home today and will come back to her
apartment tomorrow to observe the nurse & her mother doing the IV Abx teaching. If her mother cannot do the IV Abx administration she may take the patient home to her house in [place] so she can do the Abx for her- she would let [facility] know.
Daughter works at 6am tomorrow and will leave work early tomorrow to be with the patient for IV Abx. Daughter expressed concern re; her mother staying by herself tonight. Reviewed patient's PT/OT notes with daughter. If needed, she will ask her
brother/sister in law, to stay with the patient tonight. Discussed hiring private caregiver vs adding [facility] as needed.
Plan home today with [facility] for home IV Abx, with [facility].
--- NOTE | 2024-10-01 11:22 | PTCARENOTE ---
Assumed care of pt from previous nurse. Pt denies pain. pt for dc today to home after 1400 ABT. Pt is on tele running nsr. Pt lungs are diminished, pt is 95% on ra. pt call correa is within reach, pt rings anjelica. will cont to monitor.
[2024-10-01 11:25] VITALS: BP 113/50
[2024-10-01] MEDS: INVANZ 60 MG IV (13:32)
--- NOTE | 2024-10-01 14:09 | W.DCSUMMARY ---
Discharge Summary
Discharge Data
Date of Admission: 09/26/24
Date of Discharge: 10/01/24
-
Pending Results: No
Hospital Course
84 years old female presented to the hospital with history of nausea, vomiting, loss of appetite and indigestion for a few days. Patient had leukocytosis with left shift bands 8%, 99.4F, HR 114. Patient met the criteria of sepsis. She was also
found to have acute kidney injury. Scan of the abdomen and pelvis with oral contrast only showed mild cholelithiasis. Patient had abdominal discomfort in right upper quadrant. Ultrasound of the abdomen showed large amount of gallbladder sludge
with few moderate size gallstones. Patient was evaluated by surgery. She underwent laparoscopic cholecystectomy with cholangiogram. Blood culture came positive for extended spectrum beta-lactamase Escherichia Coli. Urine culture came positive
for same micro. Patient was diagnosed with urine tract infection. Scan of the abdomen and pelvis did not show hydronephrosis. Patient had transient retention and Monsivais catheter was placed. Subsequently, patient was able to pass voiding trial
without need for catheterization. Patient was evaluated by ID doctor. She received intravenous antibiotic and repeat blood culture showed no growth. She received midline to finish course of intravenous ertapenem through October 07. Kidney
function improved. Patient complained of cough and was given breathing treatment. Patient remained hemodynamically stable. She was evaluated by physical therapy and recommended home health services. park recreation manager evaluated the patient. Patient
was discharged in a stable condition.
Discharge Plan
-
Patient Disposition: Home with Home Care
Discharge Diagnosis/Procedures: E -coli bacteremia and UTI. Ertapenem through 10/07/24.
Chronic cholecystitis status post Laparoscopic cholecystectomy with cholangiogram
Diet: Regular and Low Fat
Additional Diets: The patient for bloating, crampy abdominal pain, or diarrhea follow a low-fat diet
Activity: No strenuous activity
Additional Activity: No heavy lifting (> 20 lbs) or strenuous activities for 2 weeks postoperatively
Driving Restrictions: No driving if to sore or taking narcotics
Bathing Restrictions: OK to Shower
Wound Care: Keep incisions clean and dry. Glue will flake off in 2 to 3 weeks. Stitches will dissolve.
Activity Restrictions/Additional Instructions:
Call for fevers (>100.5), nausea or vomiting, worsening abdominal pain, yellowing of the eyes or skin
Referrals:
Rosalba Woods DO [Family Provider] - in one to two weeks
Jovan Santana MD [Active] - in two to four weeks
Prescriptions:
New
Ertapenem [Invanz] 1000 MG
0.9% Sodium Chloride [Nss] 50 ML
120 mls/hr IV Q24H
Ordered By: Cherise Underwood MD
Last Taken: 10/01/24 13:32 60 mls
Continued
fluticasone propion-salmeterol [Advair Diskus] 1 DISK blister with device
2 puff inhalation R BID
tiotropium bromide [Spiriva with HandiHaler] 18 MCG capsule, w/inhalation device
1 cap inhalation R DAILY
calcium carbonate-vitamin D3 [Calcium 600 + D(3)] 600 mg-10 mcg (400 unit) Tablet
1 tab PO DAILY
Prolia 60 mg/mL Syringe
60 mg SC [id number]
cyanocobalamin (vitamin B-12) 1,000 mcg Tablet
1,000 mcg PO DAILY
trazodone 100 mg Tablet
100 mg PO HS
irbesartan 300 mg Tablet
300 mg PO DAILY
cyclosporine [Restasis] 0.05 % Dropperette
1 drp BOTH EYES Q12H
simvastatin [Zocor] 20 mg Tablet
20 mg PO HS
multivitamin Tablet
1 tab PO DAILY
cholecalciferol (vitamin D3) [Vitamin D3] 25 mcg (1,000 unit) Capsule
25 mcg PO DAILY
Visbiome 112.5 billion cell Capsule
1 cap PO DAILY
loperamide 2 mg Capsule
2 mg PO DAILYPRN PRN (Reason: diarrhea)
furosemide 40 mg tablet
40 mg PO DAILY
albuterol sulfate 90 mcg/actuation HFA aerosol inhaler
2 puff INHALATION R Q6HPRN PRN (Reason: sob/wheezing)
Discharge Orders:
Discharge Patient (As Directed); Ordered 10/01/24
Ordered By: Cherise Underwood
Discharge Date and Time
Discharge Date/Time: 10/01/24 15:23
Print Language: PALESTINIAN
[2024-10-01] MEDS: ProAIR HFA INHALER INH (15:01)
== END 2024-10-01 15:23 | disposition home health service (06) | DRG 853 ==
LOC: 3 WEST ACU 18:19
PROVIDERS: Clinical Nurse Specialist Family Health; Radiology Vascular & Interventional Radiology; ADMITTING PHYSICIAN Internal Medicine; ATTENDING PHYSICIAN Internal Medicine; CONSULT PHYSICIAN Internal Medicine Infectious Disease; CONSULT PHYSICIAN Surgery; EMERGENCY PHYSICIAN Emergency Medicine; FAMILY PHYSICIAN Internal Medicine
PROC: 0FT44ZZ Resection of Gallbladder, Percutaneous Endoscopic Approach (ICD-10-PCS; 2024-09-27)
PROC: BF502Z0 Other Imaging of Bile Ducts using Fluorescing Agent, Intraoperative (ICD-10-PCS; 2024-09-27)
DX: A41.51 Sepsis due to Escherichia coli [E. coli] (principal); R65.21 Severe sepsis with septic shock; N17.9 Acute kidney failure, unspecified; E87.1 Hypo-osmolality and hyponatremia; K80.10 Calculus of gallbladder with chronic cholecystitis without obstruction; N39.0 Urinary tract infection, site not specified; Z66 Do not resuscitate; E78.00 Pure hypercholesterolemia, unspecified; I10 Essential (primary) hypertension; J44.9 Chronic obstructive pulmonary disease, unspecified; I95.9 Hypotension, unspecified; D51.3 Other dietary vitamin B12 deficiency anemia; M81.0 Age-related osteoporosis without current pathological fracture; E86.0 Dehydration; G47.00 Insomnia, unspecified; K58.9 Irritable bowel syndrome, unspecified; K76.0 Fatty (change of) liver, not elsewhere classified; R33.8 Other retention of urine; Z91.041 Radiographic dye allergy status; Z88.5 Allergy status to narcotic agent; Z79.899 Other long term (current) drug therapy; Z79.51 Long term (current) use of inhaled steroids; Z87.891 Personal history of nicotine dependence; Z90.49 Acquired absence of other specified parts of digestive tract; Z85.828 Personal history of other malignant neoplasm of skin
CPT/HCPCS: 88304; 74176; 74300; 76000; 76700; 80053; 80061; 81003; 81015; 82607; 82746; 83605; 83690; 84145; 85025; 87040; 87086; 87088; 87149; 87186; 87205; 87324; 87449; 88342; 93005; 94640; 96360; 97116; 97162; 97164; 97166; 97530; 97535; 99285; J1335; J2185

== ENCOUNTER 2024-10-05 18:16 | Observation (INO) | payer MEDICARE, BC, SELFPAY ==
[2024-10-05] VITALS (17 sets, daily range): BP systolic 95–135; BP diastolic 38–82; PULSE 92–117; BMI 21.1
[2024-10-05 10:37] LABS: % Basophils 0.5 % (0-2); % Eosinophils 0.6 % (0-6); % Lymphocytes 18.2 % (20.5-51.1); % Monocytes 8.3 % (1.7-9.3); % Neutrophils 71.4 % (42.2-75.2); Absolute Basophils 0.1 10^3/uL (0-0.2); Absolute Eosinophils 0.1 10^3/uL (0-0.7); Absolute Immature Granulocytes 0.1 10^3/uL (0-0.05); Absolute Monocytes 0.9 10^3/uL (0.1-0.6); Absolute Neutrophils 7.9 10^3/uL (1.4-6.5); Hematocrit 29.4 % (37.0-47.0); Hemoglobin 10.1 g/dL (12.0-16.0); Mean Corp Hgb Conc. 34.4 g/dL (33.0-37.0); Mean Corpuscular Hgb 32.9 pg (27.0-31.0); Mean Corpuscular Volume 95.8 fL (81.0-99.0); Mean Platelet Volume 9.9 fL (7.4-10.4); Nucleated Red Blood Cells % 0 %; Platelet Count 360 10^3/uL (130-400); Red Blood Cell Count 3.07 10^6/uL (4.20-5.40); Red Cell Dist. Width 14.6 % (11.5-14.5)
[2024-10-05] MEDS: NSS 500 IV (10:41)
[2024-10-05 11:03] LABS: Lactic Acid 0.7 mmol/L (0.7-2.0)
[2024-10-05 11:22] LABS: Troponin I < 0.012 ng/ml
--- NOTE | 2024-10-05 11:55 | ED.GENMED ---
History of Present Illness
General
Chief Complaint: Fall
Source: patient
Exam Limitations: none
Time Seen by Provider: 10/05/24 10:03
Nursing documentation reviewed up to this point in time: agreed with
History of Present Illness
History of Present Illness:
84-year-old female past medical history of hypertension hyperlipidemia COPD presenting to the emergency department today with concerns of 3 falls yesterday due to weakness at [employer]. Recently the cholecystectomy was discharged a few days
ago. Also had diarrhea and E. coli has been taking ertapenem from a right side of midline. Has had left rib and left hip discomfort from the falls otherwise is more concerned about feeling generalized weakness.
Past History
Past History
ED Past Medical History: COPD, Hypercholesterolemia and Other (Diverticulosis, osteoporosis)
ED Past Surgical History: Gynecological (Hysterectomy) and Orthopedic (Laminectomy, shoulder surgery)
Social History
Personal:
Living: with family
Employment: Retired
Review of Systems
Review of Systems
Allergies reviewed?: Yes
All Other Systems: ROS reviewed and negative except as documented in HPI and ROS
Phy Exam
Physical Exam
Physical Exam:
GENERAL: Alert , in no apparent distress
EYE: pupils equal and reactive
NECK: Supple, no significant adenopathy.
ENT: o/p clr, mmm.
CARDIAC: Regular rate and rhythm .
LUNGS: Clear breath sounds bilaterally, no acute respiratory distress, no wheezes/rales/rhonchi
ABDOMEN: Soft, without focal tenderness, no r/g, no cvat
NEUROLOGICAL: Alert and oriented, no focal neuro deficits
SKIN: Warm and dry, skin intact.
MUSCULOSKELETAL: Mild tenderness to the left lateral hip left lateral lower ribs no abdominal pain to palpation no edema, well perfused.
PSYCH: Normal and appropriate interaction.
Course
Orders/Labs/Results
Orders:
Orders
10/05/24 10:32
Complete Blood Count/With Diff Urgent
10/05/24 10:33
Urinalysis Reflex To Culture Urgent
Date Specimen was Collected: 10/05/24
Time Specimen was Collected: 15:01
0.9% Sodium Chloride 500 ml [Nss] 500 ml IV BOLUS
Ondansetron Injectable [Zofran] 4 mg IV NOW STA
10/05/24 10:34
EKG [Electrocardiogram (*1)] Urgent
Reason for Study: Abdominal Pain
EKG- Treatment ONCE
10/05/24 10:40
Lactic Acid Urgent
Troponin I Urgent
10/05/24 10:46
Add On- LAB Urgent
Tests Added?: lipase
10/05/24 10:51
CR Ribs-left 3 Vw W/pa Chest Urgent
Comment:
Reason For Exam: rib pain
Hip, Left 2-3 Views [CR Hip - LT w/wo Pel 2-3 Vw*] Urgent
Comment:
Reason For Exam: hip pain afterfall
Include a pelvis x-ray?: Yes
10/05/24 13:06
Comprehensive Metabolic Panel Urgent
Lipase Urgent
Comment: ADD ON
TSH Reflex To Free T4 Urgent
Comment: ADD ON
10/05/24 13:25
Ertapenem [Invanz] 1,000 mg 0.9% Sodium Chloride [Nss] 50 ml IV NOW
10/05/24 13:45
Add On- LAB Urgent
Tests Added?: tsh free t4
10/05/24 14:07
Orthostatic VS- Treatment ONCE
Pt Eval And Treat Urgent
Activity Level: Ambulate
10/05/24 15:52
Case Management Consult ONCE
Case Management Consult: Discharge Planning
Abnormal Lab Results
10/05/24 10/05/24
10:32 13:06
WBC 11.0 H 10^3/uL
(4.8-10.8)
RBC 3.07 L 10^6/uL
(4.20-5.40)
Hgb 10.1 L g/dL
(12.0-16.0)
Hct 29.4 L %
(37.0-47.0)
MCH 32.9 H pg
(27.0-31.0)
RDW 14.6 H %
(11.5-14.5)
Abs Immat Gran (auto) 0.1 H 10^3/uL
(0-0.05)
Absolute Neuts (auto) 7.9 H 10^3/uL
(1.4-6.5)
Absolute Monos (auto) 0.9 H 10^3/uL
(0.1-0.6)
Immature Gran % 1.0 H %
(0-0.5)
Lymphocytes % 18.2 L %
(20.5-51.1)
Total Protein 5.7 L g/dl
(6.3-8.2)
Albumin 3.0 L g/dl
(3.5-5.0)
10/05/24 10:32
10/05/24 13:06
Vital Signs
Initial and Last Documented VS:
Initial Vital Signs
Temp Pulse Resp BP Pulse Ox
97.8 F 82 16 109/50 96
10/05/24 10:00 10/05/24 10:00 10/05/24 10:00 10/05/24 10:00 10/05/24 10:00
Last Documented Vital Signs
Temp Pulse Resp BP Pulse Ox
97.8 F 92 17 107/42 94
10/05/24 10:00 10/05/24 15:45 10/05/24 15:45 10/05/24 15:00 10/05/24 15:45
MDM/Problems Addressed
MDM/Problems Addressed:
84-year-old female presenting to the emergency department today after multiple falls yesterday feeling generalized weakness. Was here recently and had a cholecystectomy also diagnosed with a E. coli colitis currently getting IV antibiotics. She
was concerned that her blood pressure should be low and she feels very weak and tired and having significant with ambulation second to weakness. Upon arrival blood pressure in the low 100s over 50s other vital signs are normal. Orthostatic vital
signs without orthostasis. Afebrile throughout no specific and ongoing infectious symptoms. Labs showed very slightly elevated white count otherwise no acute abnormalities troponin negative x-ray of the ribs showing rib fracture hip x-ray without
acute abnormalities. Patient tried to ambulate with PT with significant difficulty unable to be discharged plan to admit for further assessment. And potential placement.
*Critical Care Note
Total Time (30-74mins, 75-104mins- exclusive of procedures): Not Applicable
ED Attending Note
-
Portions of this chart may have been created with voice recognition software.� Occasional wrong word or��sound alike� substitutions may have occurred due to the inherent limitations of voice recognition software.
Discharge Plan
Departure
Patient Disposition: Admit
Date of Disposition: 10/05/24
Time of Disposition: 16:03
Admit to: Med/Surg
Admit to doctor: Sampson
Presentation/result/management discussed w/ accepting MD/DO: Hospitalist
Patient with high blood pressure during this ER visit?: No
Condition: Good
Covid-19: Not Applicable
Discharge Problem:
Ambulatory dysfunction, Generalized weakness
Prescriptions:
No Action
tiotropium bromide [Spiriva with HandiHaler] 18 MCG capsule, w/inhalation device
1 cap inhalation R DAILY
calcium carbonate-vitamin D3 [Calcium 600 + D(3)] 600 mg-10 mcg (400 unit) Tablet
1 tab PO DAILY
Prolia 60 mg/mL Syringe
60 mg SC [id number]
cyanocobalamin (vitamin B-12) 1,000 mcg Tablet
1,000 mcg PO DAILY
trazodone 100 mg Tablet
100 mg PO HS
irbesartan 300 mg Tablet
300 mg PO DAILY
Rx Instructions:
on hold starting 10/05/24
cyclosporine [Restasis] 0.05 % Dropperette
1 drp BOTH EYES Q12H
simvastatin [Zocor] 20 mg Tablet
20 mg PO HS
multivitamin Tablet
1 tab PO DAILY
cholecalciferol (vitamin D3) [Vitamin D3] 25 mcg (1,000 unit) Capsule
25 mcg PO Q48H
Visbiome 112.5 billion cell Capsule
1 cap PO DAILY
loperamide 2 mg Capsule
2 mg PO DAILYPRN PRN (Reason: diarrhea)
furosemide 40 mg tablet
40 mg PO DAILY
Rx Instructions:
on hold starting 10/05/24
albuterol sulfate 90 mcg/actuation HFA aerosol inhaler
2 puff INHALATION R Q6HPRN PRN (Reason: sob/wheezing)
Ertapenem [Invanz] 1000 MG
0.9% Sodium Chloride [Nss] 50 ML
120 mls/hr IV Q24H
Ordered By: Cherise Underwood MD
Last Taken: 10/04/24
fluticasone propion-salmeterol [Advair Diskus] 250-50 mcg/dose Blister With Device
2 inh INHALATION R BID
acetaminophen [Tylenol Extra Strength] 500 mg Tablet
1,000 mg PO BIDPRN PRN (Reason: mild pain)
Referrals:
Rosalba Woods DO [Family Provider] -
Interventions
Interventions:
*Risk Screen - Suicide Last Done: 10/05/24 10:03
*General Assessment Last Done: 10/05/24 10:03
*Neglect/Abuse Screening Last Done: 10/05/24 10:03
*ED COVID-19 Vaccine History Last Done: 10/05/24 10:02
ED-Musculoskeletal Assessment Last Done: 10/05/24 10:03
ED- Neurological Assessment Last Done: 10/05/24 10:03
ED-Skin Assessment Last Done: 10/05/24 10:03
Discharge Date and Time
Print Language: TAJIK
[2024-10-05 13:33] LABS: ALT (SGPT) 21 U/L (0-35); AST (SGOT) 25 U/L (14-36); Alkaline Phosphatase 56 U/L (38-126); Blood Urea Nitrogen 16 mg/dl (7-17); Calcium 8.4 mg/dl (8.4-10.2); Carbon Dioxide 25 mmol/L (22-30); Chloride 102 mmol/L (98-107); Estimated Creatinine Clearance 37 ml/min; Glucose 84 mg/dl (70-99); Lipase 69 U/L (23-300); Potassium 3.9 mmol/L (3.5-5.1); Sodium 138 mmol/L (135-145); Total Bilirubin 0.4 mg/dl (0.2-1.3); Total Protein 5.7 g/dl (6.3-8.2); eGFR > 60.00
[2024-10-05] MEDS: INVANZ 60 MG IV (13:59)
[2024-10-05 16:25] LABS: TSH Reflex To Free T4 0.57 uIU/ml (0.47-4.68)
--- NOTE | 2024-10-05 17:42 | HPS.HSE ---
Family Physician
-
Family Physician: Rosalba Woods
Chief Complaint
-
fall
History of Present Illness
84-year-old female past medical history of hypertension, hyperlipidemia, COPD, diverticulosis, osteoporosis presenting to emergency room with concerns of 3 falls yesterday due to weakness at [employer]. She has pain in her left rib area. She
denies hitting her head.
She was discharged 4 days ago for cholecystitis. He underwent laparoscopic cholecystectomy. She also had blood culture showing E. coli and had UTI. Patient had urinary retention and Monsivais catheter was placed which resolved. He completed IV
ertapenem.
Medical History
Past Medical History
Past Medical History: Reports Other ( hypertension, hyperlipidemia, COPD, diverticulosis, osteoporosis )
Past Surgical History: Reports Other (Gynecological (Hysterectomy) and Orthopedic (Laminectomy, shoulder surgery))
Social History
Tobacco: Non-smoker
Alcohol: None
Drug: None
Family History
Family History: Not pertinent
Allergies / Home Medications
Allergies reflects when Allergies were last updated in [facility].
Home Medications with original date entered in [facility]
Allergy/Medication List:
Allergies
Allergy/AdvReac Type Severity Reaction Status Date / Time
codeine Allergy Nausea Verified 09/26/24 11:49
Iodinated Contrast Media Allergy Hives Verified 09/26/24 11:49
iodine Allergy Hives Verified 09/26/24 11:49
Sulfa (Sulfonamide AdvReac Nausea / Verified 09/29/24 13:00
Antibiotics) Vomiting/diarrhea
Home Medications
calcium 600 mg (as carbonate)-vitamin D3 10 mcg (400 unit) tablet (Calcium 600 + D(3)) 1 tab PO DAILY Supplement 05/14/15
denosumab 60 mg/mL subcutaneous syringe (Prolia) 60 mg SC [id number] osteoporosis 05/14/15
tiotropium bromide 18 mcg capsule with inhalation device (Spiriva with HandiHaler) 1 cap inhalation R DAILY Lung/Breathing Issues 05/14/15
cyanocobalamin (vitamin B-12) 1,000 mcg tablet 1,000 mcg PO DAILY Supplement 11/02/23
cyclosporine 0.05 % eye drops in a dropperette (Restasis) 1 drp BOTH EYES Q12H Eye Condition 11/02/23
irbesartan 300 mg tablet 300 mg PO DAILY Blood Pressure 11/02/23
simvastatin 20 mg tablet (Zocor) 20 mg PO HS High Cholesterol 11/02/23
trazodone 100 mg tablet 100 mg PO HS mental health/sleep 11/02/23
Lactobac no.2-Bifidobac no.1-S. thermo 112.5 billion cell capsule (Visbiome) 1 cap PO DAILY probiotic 07/11/24
cholecalciferol (vitamin D3) 25 mcg (1,000 unit) capsule (Vitamin D3) 25 mcg PO Q48H Supplement 07/11/24
multivitamin 1 tab PO DAILY Supplement 07/11/24
loperamide 2 mg capsule 2 mg PO DAILYPRN PRN diarrhea 07/19/24
albuterol sulfate 90 mcg/actuation aerosol inhaler 2 puff inhalation R Q6HPRN PRN sob/wheezing 09/26/24
furosemide 40 mg tablet 40 mg PO DAILY Fluid Retention/Swelling 09/26/24
Ertapenem [Invanz] 1,000 mg 120 mls/hr IV Q24H 10/01/24
acetaminophen 500 mg tablet (Tylenol Extra Strength) 1,000 mg PO BIDPRN PRN mild pain 10/05/24
fluticasone 250 mcg-salmeterol 50 mcg/dose blistr powdr for inhalation (Advair Diskus) 2 inh inhalation R BID 10/05/24
Review of Systems
-
History Source: Patient
A 12 point ROS was completed and negative except as noted: Yes
Constitutional: Reports No Symptoms
EENT: Reports No Symptoms
Respiratory: Reports No Symptoms
Cardiac: Reports No Symptoms
Abdomen/GI: Reports No Symptoms
: Reports No Symptoms
Musculoskeletal: Reports No Symptoms
Skin: Reports No Symptoms
Neurological: Reports No Symptoms
Endocrine: Reports No Symptoms
Hematologic/Lymphatic: Reports No Symptoms
Psych: Reports No Symptoms
Physical Exam
Vital Signs
Vital Signs
Temp Pulse Resp BP Pulse Ox
97.8 F 82 15 125/56 96
10/05/24 10:00 10/05/24 17:15 10/05/24 17:15 10/05/24 17:00 10/05/24 17:15
Physical Exam
General: Well Developed, Well Nourished and No Apparent Distress
HEENT: NormoCephalic, Moist mucous membranes and Atraumatic
Respiratory: Clear
Cardiac: S1/S2 and Regular Rhythm; No Murmur or Rub
GI: Soft, Non Tender, Non Distended and Normal Bowel Sounds; No Organomegaly
Rectal: Deferred by Provider
Musculoskeletal: No Clubbing, No Cyanosis and No Edema
Skin: No Rash
Neuro: Nonfocal/grossly intact
Laboratory Results
-
10/05/24 10:32
10/05/24 13:06
Laboratory Results
Lactic Acid 0.7 mmol/L (0.7-2.0) 10/05/24 10:40
Total Bilirubin 0.4 mg/dl (0.2-1.3) 10/05/24 13:06
AST 25 U/L (14-36) 10/05/24 13:06
ALT 21 U/L (0-35) 10/05/24 13:06
Alkaline Phosphatase 56 U/L (38-126) 10/05/24 13:06
Troponin I < 0.012 ng/ml 10/05/24 10:40
Lipase 69 U/L (23-300) 10/05/24 13:06
Data Reviewed
-
Lab Data: Labs Reviewed by me
Old Records: Reviewed
Impression/Plan
-
IMPRESSION:
PLAN:
# Ambulatory dysfunction/falls
# Nondisplaced anterior left eighth rib fracture
-Tylenol for pain
-Rib x-ray shows subtle nondisplaced anterior left eighth rib fracture
-Hip x-ray unremarkable
-PT/OT/case management
Chronic cholecystitis
-S/p cholecystectomy
E. coli bacteremia
-Continue ertapenem until 10/07 through midline
Chronic anemia with low MCV
Hgb 10.5
High Vitamin B12 and Folate
-Continue B12 supplement
- Will recommend to f/w PCP to do further work up
#Hx stage I diastolic dysfunction 2021
-Follows with Dr. Ortiz [facility] cardiology
2D echo 08/26/2024: EF 50 to 55%, no wall abnormalities, normal LVS and LVSF, mild mitral regurgitation. Moderately calcified aortic valve without stenosis. Mild to moderate TR, PASP 35 mmHg
-Continue Lasix
Essential hypertension
-Continue irbesartan
#Chronic COPD
-Patient follows with Dr. Goddard
-Continue Advair 2 puffs twice daily, Spiriva
#History of JENNIFER Dx January 2022
-Patient took course of azithromycin, ethambutol, rifampin from January 2022 until January 2023
#HLD
-Continue Zocor
#Diverticulosis/diverticulitis status post colectomy, rectal fistula repair and anal fissure repair Hx
#Osteoporosis hx
-Continue vitamin D supplementation with calcium, patient also gets Prolia 60 mg SQ every 6 months upon dc
#Insomnia
-Continue trazodone 100 mg at bedtime
#Hx glaucoma with stents placed in eyes 3 to 4 years ago
-Continue Restasis eyedrops
DVT prophylaxis-SCDs
Regular diet
DNR
[2024-10-05] MEDS: ADVAIR HFA 115/21 MCG INHALER 2 PUFF INH (19:50)
--- NOTE | 2024-10-05 20:00 | PTCARENOTE ---
Patient admitted to [facility] from the ED. Patient was brought into room by stretcher and was transferred into bed. Bed alarm applied. Patient was oriented to the room. Patient is able to state needs. Call correa within reach. Will continue with current
care plan.
[2024-10-05] MEDS: LIPITOR 10 MG PO (21:00)
[2024-10-05] MEDS: RESTASIS 0.05% OPHTHALMIC EMULSION 1 DROPS BOTH EYES (21:00)
[2024-10-05] MEDS: DESYREL 100 MG PO (21:00)
[2024-10-06 07:25] VITALS: BP 113/59
[2024-10-06] MEDS: VITAMIN B-12 1000 MCG PO (08:23)
[2024-10-06] MEDS: OSCAL 500 + D 500 MG PO (08:23)
[2024-10-06] MEDS: VITAMIN D3 (cholecalciferol) 25 MCG PO (08:23)
[2024-10-06] MEDS: RESTASIS 0.05% OPHTHALMIC EMULSION 1 DROPS BOTH EYES ×2 (08:24→21:56)
[2024-10-06] MEDS: THERAGRAN 1 TABLET PO (08:24)
[2024-10-06 08:29] LABS: % Basophils 0.8 % (0-2); % Eosinophils 1.9 % (0-6); % Immature Granulocytes 0.8 % (0-0.5); % Lymphocytes 28.8 % (20.5-51.1); % Monocytes 10.4 % (1.7-9.3); % Neutrophils 57.3 % (42.2-75.2); Absolute Basophils 0.1 10^3/uL (0-0.2); Absolute Eosinophils 0.2 10^3/uL (0-0.7); Absolute Immature Granulocytes 0.1 10^3/uL (0-0.05); Absolute Lymphocytes 2.3 10^3/uL (1.2-3.4); Absolute Monocytes 0.8 10^3/uL (0.1-0.6); Absolute Neutrophils 4.5 10^3/uL (1.4-6.5); Hematocrit 27.5 % (37.0-47.0); Hemoglobin 9.5 g/dL (12.0-16.0); Mean Corp Hgb Conc. 34.5 g/dL (33.0-37.0); Mean Corpuscular Hgb 32.9 pg (27.0-31.0); Mean Corpuscular Volume 95.2 fL (81.0-99.0); Mean Platelet Volume 9.7 fL (7.4-10.4); Nucleated Red Blood Cells % 0 %; Platelet Count 356 10^3/uL (130-400); Red Blood Cell Count 2.89 10^6/uL (4.20-5.40); Red Cell Dist. Width 14.3 % (11.5-14.5); White Blood Cell Count 7.9 10^3/uL (4.8-10.8)
[2024-10-06] MEDS: VISBIOME 1 CAP PO (08:33)
[2024-10-06] MEDS: SPIRIVA RESPIMAT 2.5 MCG 2 PUFF INH (08:47)
[2024-10-06] MEDS: ADVAIR HFA 115/21 MCG INHALER 2 PUFF INH ×2 (08:47→19:20)
[2024-10-06 09:48] LABS: ALT (SGPT) 19 U/L (0-35); AST (SGOT) 23 U/L (14-36); Alkaline Phosphatase 60 U/L (38-126); Blood Urea Nitrogen 12 mg/dl (7-17); Calcium 8.3 mg/dl (8.4-10.2); Carbon Dioxide 25 mmol/L (22-30); Chloride 103 mmol/L (98-107); Estimated Creatinine Clearance 41 ml/min; Glucose 111 mg/dl (70-99); Potassium 3.6 mmol/L (3.5-5.1); Sodium 140 mmol/L (135-145); Total Bilirubin 0.3 mg/dl (0.2-1.3); Total Protein 5.7 g/dl (6.3-8.2); eGFR > 60.00
[2024-10-06 10:51] VITALS: BMI 21.1
[2024-10-06 12:12] LABS: Urine Albumin Negative (Neg - Trace); Urine Bilirubin Negative (Negative); Urine Character Clear (Clear); Urine Color Yellow; Urine Glucose Negative (Negative); Urine Ketone Negative (Negative); Urine Leukocyte 2+ (Negative); Urine Nitrite Negative (Negative); Urine Occult Blood Negative (Negative); Urine Urobilinogen Negative (Neg - 1+)
[2024-10-06] MEDS: INVANZ 60 MG IV (12:35)
--- NOTE | 2024-10-06 12:42 | W.PN.HOSP.TC ---
Today's Communication/Plan
-
monitor vitals
see plan
PT/OT
likely will need rehab
cw ertapenem till tomorrow
Assessment / Plan
Assessment / Plan
General: Well Developed, Well Nourished and No Apparent Distress
HEENT: NormoCephalic, Moist mucous membranes and Atraumatic
Respiratory: Clear
Cardiac: S1/S2 and Regular Rhythm; No Murmur or Rub
GI: Soft, Non Tender, Non Distended and Normal Bowel Sounds
Musculoskeletal: No Clubbing, No Cyanosis and No Edema
Neuro: Nonfocal/grossly intact
Ambulatory dysfunction/falls
# Nondisplaced anterior left eighth rib fracture
-Tylenol for pain
-Rib x-ray shows subtle nondisplaced anterior left eighth rib fracture
-Hip x-ray unremarkable
-PT/OT/case management
Chronic cholecystitis
-S/p cholecystectomy
E. coli bacteremia
-Continue ertapenem until 10/07; midline needs to come out after that
Chronic anemia with low MCV
monitor
High Vitamin B12 and Folate
-Continue B12 supplement
- Will recommend to f/w PCP to do further work up
#Hx stage I diastolic dysfunction 2021
-Follows with Dr. Ortiz [facility] cardiology
2D echo 08/26/2024: EF 50 to 55%, no wall abnormalities, normal LVS and LVSF, mild mitral regurgitation. Moderately calcified aortic valve without stenosis. Mild to moderate TR, PASP 35 mmHg
-instructed to hold Lasix outpatient; monitor
Essential hypertension
-hold irbesartan and monitor
#Chronic COPD
-Patient follows with Dr. Goddard
-Continue Advair 2 puffs twice daily, Spiriva
#History of JENNIFER Dx January 2022
-Patient took course of azithromycin, ethambutol, rifampin from January 2022 until January 2023
#HLD
-Continue Zocor
#Diverticulosis/diverticulitis status post colectomy, rectal fistula repair and anal fissure repair Hx
#Osteoporosis hx
-Continue vitamin D supplementation with calcium, patient also gets Prolia 60 mg SQ every 6 months upon dc
#Insomnia
-Continue trazodone 100 mg at bedtime
#Hx glaucoma with stents placed in eyes 3 to 4 years ago
-Continue Restasis eyedrops
DVT prophylaxis-SCDs, heparin
DNR
Anticipated Discharge: Within 24 hours
Subjective/Interval History
-
Date of Service: October 06, 2024
denies pain
Objective Data
-
Labs:
Laboratory Results
10/06/24
07:57
WBC 7.9
Hgb 9.5 L
Hct 27.5 L
Plt Count 356
Sodium 140
Potassium 3.6
Chloride 103
Carbon Dioxide 25
BUN 12
Creatinine 0.8
Glucose 111 H
Calcium 8.3 L
Total Bilirubin 0.3
AST 23
ALT 19
Alkaline Phosphatase 60
Vital Signs:
Vital Signs
Temp Pulse Resp BP Pulse Ox
98.7 F 82 16 113/59 98
10/06/24 07:25 10/06/24 08:56 10/06/24 08:56 10/06/24 07:25 10/06/24 08:56
I&O
10/05/24 10/06/24 10/07/24
06:59 06:59 06:59
Intake Total 120 / 120
Output Total 450 / 450
Balance 120 / 120 -450 / -450
[2024-10-06 13:00] LABS: Urine Bacteria Many (Negative); Urine Red Blood Cell 0-2 /HPF (0-2); Urine Squamous Cell >30 /LPF (Few); Urine White Cell 30-40 /HPF (0-5)
[2024-10-06 14:04] VITALS: BP 102/60; BP 110/53; BP 117/57; PULSE 103; PULSE 107; PULSE 90
--- NOTE | 2024-10-06 15:20 | CM ---
clearance center manager reviewed patient's chart and met with patient and patient was admitted under obs, TALBERT letter provided to patient. Patient lives alone at [facility], patient was independent with adl's and used a walker with
ambulation, michelle was sent home with [facility] care infusion and [facility] visiting nurses, now readmit after falls since patient has recent inpatient stay block and case maker is able to have patient approved for skilled, referral sent to [facility] at the [place]
[place].
PCP: Dr. Woods
Pharmacy [facility].
Plan; Skilled placement at the [facility] referral sent to the [facility].
[2024-10-06 15:24] VITALS: BP 110/77
[2024-10-06] MEDS: HEPARIN 5000 UNITS SC (16:36)
[2024-10-06 19:33] VITALS: BP 107/59; BP 93/58; PULSE 88
[2024-10-06] MEDS: LIPITOR 10 MG PO (21:56)
[2024-10-06] MEDS: DESYREL 100 MG PO (21:56)
[2024-10-06 23:31] VITALS: BP 111/61
[2024-10-07] MEDS: HEPARIN SC ×2 (00:39→10:54)
[2024-10-07] MEDS: TYLENOL 1000 MG PO (00:43)
[2024-10-07 07:09] VITALS: BP 111/56
[2024-10-07] MEDS: ADVAIR HFA 115/21 MCG INHALER 2 PUFF INH (07:55)
[2024-10-07] MEDS: SPIRIVA RESPIMAT 2.5 MCG 2 PUFF INH (07:56)
[2024-10-07 07:58] LABS: % Basophils 1.3 % (0-2); % Eosinophils 2.1 % (0-6); % Immature Granulocytes 0.6 % (0-0.5); % Lymphocytes 34.1 % (20.5-51.1); % Monocytes 14.4 % (1.7-9.3); % Neutrophils 47.5 % (42.2-75.2); Absolute Basophils 0.1 10^3/uL (0-0.2); Absolute Eosinophils 0.1 10^3/uL (0-0.7); Absolute Lymphocytes 1.8 10^3/uL (1.2-3.4); Absolute Monocytes 0.8 10^3/uL (0.1-0.6); Absolute Neutrophils 2.5 10^3/uL (1.4-6.5); Hematocrit 25.9 % (37.0-47.0); Mean Corp Hgb Conc. 34.7 g/dL (33.0-37.0); Mean Corpuscular Hgb 33.1 pg (27.0-31.0); Mean Corpuscular Volume 95.2 fL (81.0-99.0); Mean Platelet Volume 9.7 fL (7.4-10.4); Nucleated Red Blood Cells % 0 %; Platelet Count 362 10^3/uL (130-400); Red Blood Cell Count 2.72 10^6/uL (4.20-5.40); Red Cell Dist. Width 14.5 % (11.5-14.5); White Blood Cell Count 5.2 10^3/uL (4.8-10.8)
[2024-10-07 08:40] LABS: ALT (SGPT) 18 U/L (0-35); AST (SGOT) 21 U/L (14-36); Albumin 2.7 g/dl (3.5-5.0); Alkaline Phosphatase 53 U/L (38-126); Blood Urea Nitrogen 9 mg/dl (7-17); Calcium 8.2 mg/dl (8.4-10.2); Carbon Dioxide 27 mmol/L (22-30); Chloride 104 mmol/L (98-107); Estimated Creatinine Clearance 41 ml/min; Glucose 85 mg/dl (70-99); Potassium 4.1 mmol/L (3.5-5.1); Sodium 140 mmol/L (135-145); Total Bilirubin 0.2 mg/dl (0.2-1.3); Total Protein 5.3 g/dl (6.3-8.2); eGFR > 60.00
[2024-10-07] MEDS: VITAMIN B-12 1000 MCG PO (10:49)
[2024-10-07] MEDS: OSCAL 500 + D 500 MG PO (10:49)
[2024-10-07] MEDS: THERAGRAN 1 TABLET PO (10:50)
[2024-10-07] MEDS: VISBIOME 1 CAP PO (10:50)
[2024-10-07] MEDS: RESTASIS 0.05% OPHTHALMIC EMULSION 1 DROPS BOTH EYES (10:51)
[2024-10-07 11:32] VITALS: BP 107/59; BP 111/56; PULSE 76; PULSE 88
[2024-10-07 11:35] LABS: COVID-19 Antigen Negative (Negative)
--- NOTE | 2024-10-07 11:56 | W.PN.HOSP.TC ---
Today's Communication/Plan
-
Monitor vital signs
see plan
last dose ertapenem today and then dc midline and discharge
SNF
did better with PT today
time of discharge 37 minutes
Assessment / Plan
Assessment / Plan
General: Well Developed, Well Nourished and No Apparent Distress
HEENT: NormoCephalic, Moist mucous membranes and Atraumatic
Respiratory: Clear
Cardiac: S1/S2 and Regular Rhythm; No Murmur or Rub
GI: Soft, Non Tender, Non Distended and Normal Bowel Sounds
Musculoskeletal: No Clubbing, No Cyanosis and No Edema
Neuro: Nonfocal/grossly intact
Ambulatory dysfunction/falls 2/2 generalized weakness
# Nondisplaced anterior left eighth rib fracture
-Tylenol for pain, lidocaine patch
-Rib x-ray shows subtle nondisplaced anterior left eighth rib fracture
-Hip x-ray unremarkable
-PT/OT/case management rec SNF
Pyuria, no UTI symptoms
Monitor, already has been treating for ESBL
Chronic cholecystitis
-S/p cholecystectomy
E. coli bacteremia
-Continue ertapenem until 10/07; midline needs to come out after that
Chronic anemia with low MCV
monitor
High Vitamin B12 and Folate
-Continue B12 supplement
- Will recommend to f/w PCP to do further work up
#Hx stage I diastolic dysfunction 2021
-Follows with Dr. Ortiz [facility] cardiology
2D echo 08/26/2024: EF 50 to 55%, no wall abnormalities, normal LVS and LVSF, mild mitral regurgitation. Moderately calcified aortic valve without stenosis. Mild to moderate TR, PASP 35 mmHg
-instructed to hold Lasix outpatient; monitor. held due to dehydration
Essential hypertension
-hold irbesartan and monitor
#Chronic COPD
-Patient follows with Dr. Goddard
-Continue Advair 2 puffs twice daily, Spiriva
#History of JENNIFER Dx January 2022
-Patient took course of azithromycin, ethambutol, rifampin from January 2022 until January 2023
#HLD
-Continue Zocor
#Diverticulosis/diverticulitis status post colectomy, rectal fistula repair and anal fissure repair Hx
#Osteoporosis hx
-Continue vitamin D supplementation with calcium, patient also gets Prolia 60 mg SQ every 6 months upon dc
#Insomnia
-Continue trazodone 100 mg at bedtime
#Hx glaucoma with stents placed in eyes 3 to 4 years ago
-Continue Restasis eyedrops
DVT prophylaxis-SCDs, heparin
DNR
Anticipated Discharge: Today
Subjective/Interval History
-
Date of Service: October 07, 2024
denies fever
Objective Data
-
Labs:
Laboratory Results
10/07/24
06:48
WBC 5.2
Hgb 9.0 L
Hct 25.9 L
Plt Count 362
Sodium 140
Potassium 4.1
Chloride 104
Carbon Dioxide 27
BUN 9
Creatinine 0.8
Glucose 85
Calcium 8.2 L
Total Bilirubin 0.2
AST 21
ALT 18
Alkaline Phosphatase 53
Vital Signs:
Vital Signs
Temp Pulse Resp BP Pulse Ox
98.3 F 72 16 111/56 100
10/07/24 07:09 10/07/24 08:00 10/07/24 08:00 10/07/24 07:09 10/07/24 08:00
I&O
10/06/24 10/07/24 10/08/24
06:59 06:59 06:59
Intake Total 120 / 120 840 / 840
Output Total 450 / 450
Balance 120 / 120 390 / 390
[2024-10-07] MEDS: INVANZ 60 MG IV (12:00)
--- NOTE | 2024-10-07 12:08 | W.DCSUMMARY ---
Discharge Summary
Discharge Data
Date of Admission: 10/05/24
Date of Discharge: 10/07/24
-
Pending Results: No
Hospital Course
84-year-old female with past medical history of recent cholecystitis s/p cholecystectomy, E. coli ESBL bacteremia, anemia, CHF, essential hypertension, COPD, JENNIFER, hyperlipidemia, diverticulitis, osteoporosis, insomnia, glaucoma came to the hospital
with ambulatory dysfunction and fall secondary to generalized weakness. On admission she also appeared to be dehydrated and was instructed to hold Avapro and Lasix. Patient was recently hospitalized here with cholecystitis and ESBL E. coli
bacteremia. She still had few days of ertapenem left which was continued on this hospitalization and she finished antibiotics prior to discharge. She also developed subtle nondisplaced anterior left eighth rib fracture from fall. Her pain
continue to improve with Tylenol and lidocaine patch. She was evaluated by physical therapy who recommended SNF. Once her symptoms continue to improve, she was then discharged to SNF with instructions to follow-up with all her physicians
outpatient.
Discharge Plan
-
Patient Disposition: Retirement/SNF
Discharge Diagnosis/Procedures: Ambulatory dysfunction/falls
Nondisplaced anterior left eighth rib fracture
Dehydration
History of E. coli ESBL bacteremia
Diet: As tolerated
Activity: With assistance and As tolerated
Driving Restrictions: Not until seen by your Dr
Bathing Restrictions: None
Referrals:
Rosalba Woods DO [Family Provider] - in less than 1 week
Jovan Santana MD [Active] - in two to three weeks
Prescriptions:
New
lidocaine 4 % Adhesive Patch,Medicated
1 patch topical DAILY Qty: 0 0RF
Continued
tiotropium bromide [Spiriva with HandiHaler] 18 MCG capsule, w/inhalation device
1 cap inhalation R DAILY
calcium carbonate-vitamin D3 [Calcium 600 + D(3)] 600 mg-10 mcg (400 unit) Tablet
1 tab PO DAILY
Prolia 60 mg/mL Syringe
60 mg SC [id number]
cyanocobalamin (vitamin B-12) 1,000 mcg Tablet
1,000 mcg PO DAILY
trazodone 100 mg Tablet
100 mg PO HS
cyclosporine [Restasis] 0.05 % Dropperette
1 drp BOTH EYES Q12H
simvastatin [Zocor] 20 mg Tablet
20 mg PO HS
multivitamin Tablet
1 tab PO DAILY
cholecalciferol (vitamin D3) [Vitamin D3] 25 mcg (1,000 unit) Capsule
25 mcg PO Q48H
Visbiome 112.5 billion cell Capsule
1 cap PO DAILY
loperamide 2 mg Capsule
2 mg PO DAILYPRN PRN (Reason: diarrhea)
albuterol sulfate 90 mcg/actuation HFA aerosol inhaler
2 puff INHALATION R Q6HPRN PRN (Reason: sob/wheezing)
fluticasone propion-salmeterol [Advair Diskus] 250-50 mcg/dose Blister With Device
2 inh INHALATION R BID
acetaminophen [Tylenol Extra Strength] 500 mg Tablet
1,000 mg PO BIDPRN PRN (Reason: mild pain)
Held
irbesartan 300 mg Tablet
300 mg PO DAILY
Hold Instructions: restart when BP>140/90
Rx Instructions:
on hold starting 10/05/24
furosemide 40 mg tablet
40 mg PO DAILY
Hold Instructions: restart 10/10
Rx Instructions:
on hold starting 10/05/24
Discontinued
Ertapenem [Invanz] 1000 MG
0.9% Sodium Chloride [Nss] 50 ML
120 mls/hr IV Q24H
Ordered By: Cherise Underwood MD
Last Taken: 10/04/24
Discharge Orders:
Discharge Patient (As Directed); Ordered 10/07/24
Ordered By: Rocco Charles
Discharge Date and Time
Discharge Date/Time: 10/07/24 13:49
Print Language: MALTESE
[2024-10-07] MEDS: LIDOCAINE 4% PATCH 1 PATCH TOPICAL (12:14)
[2024-10-07 12:43] VITALS: BP 117/51
--- NOTE | 2024-10-07 12:54 | CM ---
Patient has been accepted at [facility] today, COVID is negative, Mid line removed ABX completed.
[facility]
Report [id number]
== END 2024-10-07 13:49 ==
LOC: 4 WEST ACU 18:16
PROVIDERS: Physician Assistant; ADMITTING PHYSICIAN Hospitalist; ATTENDING PHYSICIAN Internal Medicine; EMERGENCY PHYSICIAN Emergency Medicine; FAMILY PHYSICIAN Internal Medicine
DX: R29.6 Repeated falls (principal); R53.1 Weakness; I11.0 Hypertensive heart disease with heart failure; J44.9 Chronic obstructive pulmonary disease, unspecified; E78.00 Pure hypercholesterolemia, unspecified; M81.0 Age-related osteoporosis without current pathological fracture; E86.0 Dehydration; W19.XXXA Unspecified fall, initial encounter; Y93.9 Activity, unspecified; Y92.9 Unspecified place or not applicable; S22.32XA Fracture of one rib, left side, initial encounter for closed fracture; D64.9 Anemia, unspecified; M51.379 Other intervertebral disc degeneration, lumbosacral region without mention of lumbar back pain or lower extremity pain; G47.00 Insomnia, unspecified; I87.8 Other specified disorders of veins; I50.9 Heart failure, unspecified; H40.9 Unspecified glaucoma; B96.20 Unspecified Escherichia coli [E. coli] as the cause of diseases classified elsewhere; N39.0 Urinary tract infection, site not specified; Z16.12 Extended spectrum beta lactamase (ESBL) resistance; Z91.041 Radiographic dye allergy status; Z88.2 Allergy status to sulfonamides; Z79.51 Long term (current) use of inhaled steroids; Z66 Do not resuscitate; Z87.19 Personal history of other diseases of the digestive system; Z90.49 Acquired absence of other specified parts of digestive tract; Z87.440 Personal history of urinary (tract) infections; Z11.52 Encounter for screening for COVID-19; Z60.2 Problems related to living alone
CPT/HCPCS: 71101; 73502; 80053; 81003; 81015; 83605; 83690; 84443; 84484; 85025; 87086; 87811; 93005; 94640; 96374; 96375; 97116; 97167; 99285; J1335

== ENCOUNTER → 2024-12-09 13:01 | Outpatient (REF) | payer MEDICARE, BC, SELFPAY | LOC: HWRAD 13:01 | PROVIDERS: ATTENDING PHYSICIAN Internal Medicine; REFERRING PHYSICIAN Internal Medicine Rheumatology | DX: M25.511 Pain in right shoulder (principal); M25.559 Pain in unspecified hip | CPT/HCPCS: 73030; 73502 ==

== ENCOUNTER → 2025-02-04 11:38 | Outpatient (REF) | payer MEDICARE, BC, SELFPAY | LOC: PAVMRI 11:38 | PROVIDERS: ATTENDING PHYSICIAN Physician Assistant; FAMILY PHYSICIAN Internal Medicine | DX: M25.511 Pain in right shoulder (principal) | CPT/HCPCS: 73221 ==

== ENCOUNTER 2025-04-04 21:41 | Inpatient (IN) | payer MEDICARE, BC, SELFPAY ==
[2025-04-04 14:21] VITALS: BP 156/87
[2025-04-04 15:04] LABS: % Basophils 0.3 % (0-2); % Eosinophils 0.3 % (0-6); % Immature Granulocytes 0.3 % (0-0.5); % Lymphocytes 15.2 % (20.5-51.1); % Monocytes 4.9 % (1.7-9.3); Absolute Lymphocytes 1.8 10^3/uL (1.2-3.4); Absolute Monocytes 0.6 10^3/uL (0.1-0.6); Absolute Neutrophils 9.4 10^3/uL (1.4-6.5); Hematocrit 34.3 % (37.0-47.0); Hemoglobin 12.1 g/dL (12.0-16.0); Mean Corp Hgb Conc. 35.3 g/dL (33.0-37.0); Mean Corpuscular Hgb 32.9 pg (27.0-31.0); Mean Corpuscular Volume 93.2 fL (81.0-99.0); Mean Platelet Volume 9.1 fL (7.4-10.4); Nucleated Red Blood Cells % 0 %; Platelet Count 198 10^3/uL (130-400); Red Blood Cell Count 3.68 10^6/uL (4.20-5.40); Red Cell Dist. Width 13.3 % (11.5-14.5); White Blood Cell Count 11.9 10^3/uL (4.8-10.8)
[2025-04-04 15:09] LABS: ALT (SGPT) 26 U/L (0-35); AST (SGOT) 31 U/L (14-36); Albumin 4.3 g/dl (3.5-5.0); Alkaline Phosphatase 50 U/L (38-126); Blood Urea Nitrogen 14 mg/dl (7-17); Calcium 9.3 mg/dl (8.4-10.2); Carbon Dioxide 23 mmol/L (22-30); Chloride 106 mmol/L (98-107); Glucose 109 mg/dl (70-99); Potassium 3.9 mmol/L (3.5-5.1); Sodium 137 mmol/L (135-145); Total Bilirubin 0.4 mg/dl (0.2-1.3); Total Protein 7.2 g/dl (6.3-8.2); eGFR > 60.00
[2025-04-04 15:13] LABS: NT-proBNP 710 pg/ml; Troponin I < 0.012 ng/ml
[2025-04-04 19:31] VITALS: BP 161/83
[2025-04-04 19:44] VITALS: BMI 21.4
[2025-04-04 20:00] VITALS: BP 159/80
--- NOTE | 2025-04-04 20:06 | ED.GENMED ---
History of Present Illness
General
Chief Complaint: Breathing Problem
Source: patient
Exam Limitations: none
Time Seen by Provider: 04/04/25 19:28
Nursing documentation reviewed up to this point in time: agreed with
History of Present Illness
History of Present Illness:
85-year-old female with past ministry of COPD hypertension hyperlipidemia presenting to the emergency department today with concerns of worsening shortness of breath today had viral syndrome over the past week or so. Denies any chest pain nausea
vomiting. Has had some subjective fevers and chills.
Past History
Past History
ED Past Medical History: COPD, Hypercholesterolemia and Other (Diverticulosis, osteoporosis)
ED Past Surgical History: Gynecological (Hysterectomy) and Orthopedic (Laminectomy, shoulder surgery)
Social History
Personal:
Living: with family
Employment: Retired
Review of Systems
Review of Systems
Allergies reviewed?: Yes
All Other Systems: ROS reviewed and negative except as documented in HPI and ROS
Phy Exam
Physical Exam
Physical Exam:
GENERAL: Alert , in no apparent distress
EYE: pupils equal and reactive
NECK: Supple, no significant adenopathy.
ENT: o/p clr, mmm.
CARDIAC: Regular rate and rhythm .
LUNGS: Rhonchi left lung field right-sided clear
ABDOMEN: Soft, without focal tenderness, no r/g, no cvat
NEUROLOGICAL: Alert and oriented, no focal neuro deficits
SKIN: Warm and dry, skin intact.
MUSCULOSKELETAL: No edema, well perfused.
PSYCH: Normal and appropriate interaction.
Scores
Heart Failure Risk
Heart Failure Risk Score: Not Applicable
Course
Orders/Labs/Results
Orders:
Orders
04/04/25 14:27
Electrocardiogram (*1) Urgent
Reason for Study: Other
Other Reason for Exam: Respiratory Distress
EKG- Treatment ONCE
CR Chest - 2 Views Urgent
Comment:
Reason For Exam: respiratory distress
04/04/25 14:43
Complete Blood Count/With Diff Urgent
Comprehensive Metabolic Panel Urgent
NT-proBNP Urgent
Troponin I Urgent
04/04/25 20:04
Azithromycin 500 mg IVPB NOW Azithromycin 500 mg/250 ml [Zithromax Infusion] 500 mg in 250 ml IV NOW
CefTRIAXone [Rocephin] 2,000 mg IV NOW STA
Ipratropium/Albuterol Sulfate [Duoneb] 3 ml INH R NOW ONE
Abnormal Lab Results
04/04/25
14:43
WBC 11.9 H 10^3/uL
(4.8-10.8)
RBC 3.68 L 10^6/uL
(4.20-5.40)
Hct 34.3 L %
(37.0-47.0)
MCH 32.9 H pg
(27.0-31.0)
Absolute Neuts (auto) 9.4 H 10^3/uL
(1.4-6.5)
Neutrophils % 79.0 H %
(42.2-75.2)
Lymphocytes % 15.2 L %
(20.5-51.1)
Glucose 109 H mg/dl
(70-99)
04/04/25 14:43
04/04/25 14:43
Vital Signs
Initial and Last Documented VS:
Initial Vital Signs
Temp Pulse Resp BP Pulse Ox
98.1 F 112 16 156/87 98
04/04/25 14:21 04/04/25 14:21 04/04/25 14:21 04/04/25 14:21 04/04/25 14:21
Last Documented Vital Signs
Temp Pulse Resp BP Pulse Ox
98.1 F 109 18 161/83 92
04/04/25 14:21 04/04/25 19:45 04/04/25 19:45 04/04/25 19:31 04/04/25 19:46
MDM/Problems Addressed
MDM/Problems Addressed:
85-year-old female presenting to the emergency department today for concerns of shortness of breath. Has had a viral syndrome over the past week. On arrival patient's pulse ox in the high 80s was placed on 2 L nasal cannula with improvement.
Elevated heart rate on arrival persisting while here around 110. Slight white count of 11.9. X-ray showing possible basilar pneumonia. This was also heard on examination. Plan to admit considering the patient is tachycardic with comorbidities.
Started on IV antibiotics.
*Critical Care Note
Total Time (30-74mins, 75-104mins- exclusive of procedures): Not Applicable
ED Attending Note
-
Portions of this chart may have been created with voice recognition software.� Occasional wrong word or��sound alike� substitutions may have occurred due to the inherent limitations of voice recognition software.
Discharge Plan
Departure
Patient Disposition: Admit
Date of Disposition: 04/04/25
Time of Disposition: 20:11
Admit to: Med/Surg
Admit to doctor: Elsie
Presentation/result/management discussed w/ accepting MD/DO: Hospitalist
Patient with high blood pressure during this ER visit?: No
Condition: Good
Covid-19: Not Applicable
Discharge Problem:
Pneumonia
Prescriptions:
No Action
tiotropium bromide [Spiriva with HandiHaler] 18 MCG capsule, w/inhalation device
1 cap inhalation R DAILY
calcium carbonate-vitamin D3 [Calcium 600 + D(3)] 600 mg-10 mcg (400 unit) Tablet
1 tab PO DAILY
Prolia 60 mg/mL Syringe
60 mg SC [id number]
cyanocobalamin (vitamin B-12) 1,000 mcg Tablet
1,000 mcg PO DAILY
trazodone 100 mg Tablet
100 mg PO HS
irbesartan 300 mg Tablet
300 mg PO DAILY
Rx Instructions:
on hold starting 10/05/24
cyclosporine [Restasis] 0.05 % Dropperette
1 drp BOTH EYES Q12H
simvastatin [Zocor] 20 mg Tablet
20 mg PO HS
multivitamin Tablet
1 tab PO DAILY
cholecalciferol (vitamin D3) [Vitamin D3] 25 mcg (1,000 unit) Capsule
25 mcg PO Q48H
Visbiome 112.5 billion cell Capsule
1 cap PO DAILY
loperamide 2 mg Capsule
2 mg PO DAILYPRN PRN (Reason: diarrhea)
furosemide 40 mg tablet
40 mg PO DAILY
Rx Instructions:
on hold starting 10/05/24
albuterol sulfate 90 mcg/actuation HFA aerosol inhaler
2 puff INHALATION R Q6HPRN PRN (Reason: sob/wheezing)
fluticasone propion-salmeterol [Advair Diskus] 250-50 mcg/dose Blister With Device
2 inh INHALATION R BID
acetaminophen [Tylenol Extra Strength] 500 mg Tablet
1,000 mg PO BIDPRN PRN (Reason: mild pain)
lidocaine 4 % Adhesive Patch,Medicated
1 patch topical DAILY Qty: 0 0RF
Referrals:
UNKNOWN - PT DOES,NOT KNOW [Family Provider] -
Interventions
Interventions:
*Risk Screen - Suicide Last Done: 04/04/25 14:21
*General Assessment Last Done: 04/04/25 19:46
*Neglect/Abuse Screening Last Done: 04/04/25 14:21
*ED- Fall Risk Assessment Last Done: 04/04/25 19:46
*ED COVID-19 Vaccine History Last Done: 04/04/25 19:46
ED- Cardiac Assessment Last Done: 04/04/25 19:46
ED- Pulmonary Assessment Last Done: 04/04/25 19:46
Discharge Date and Time
Print Language: FRENCH
--- NOTE | 2025-04-04 20:16 | HPS.HSE ---
Family Physician
-
Family Physician: NOT KNOW UNKNOWN - PT DOES
Chief Complaint
-
URI symptoms
History of Present Illness
Patient is a 85-year-old female with past medical history significant for hypertension, hyperlipidemia, COPD, diverticulosis and osteoporosis who presented to [facility] ED for evaluation of worsening URI symptoms. Patient reports that in early February she
tested positive for Covid, since then she has had a consistent cough that is intermittently dry and intermittency productive. She reports last week that she had new onset runny nose, sneezing and diarrhea for 2 days. Today she noticed an increase in
shortness of breath while she was on the phone conversing with a friend. Upon increased dyspnea she utilized rescue inhaler with some relief, since living in independent living at [facility] she call physicians who had security stop at apartment
were patient was found to be hypoxic in the low 80s. Patient does not have home oxygen. EMS was called for transport. Patient denies any fever, chills, chest pain, nausea, vomiting, constipation or urinary symptoms.
Medical History
Past Medical History
Past Medical History: Reports Other
Additional Past Medical History:
hypertension
hyperlipidemia
COPD
diverticulosis
osteoporosis
anemia
Past Surgical History: Reports Other
Additional Past Surgical History:
Hysterectomy
Laminectomy
shoulder surgery
cholecystectomy
Social History
Tobacco: Former Smoker (quit 20+ years ago )
Alcohol: None
Drug: None
Living: Alone (Independent Living @ [facility] )
Employment: Retired
Family History
Family History: Not pertinent
Allergies / Home Medications
Allergies reflects when Allergies were last updated in [employer].
Home Medications with original date entered in [employer]
Allergy/Medication List:
Allergies
Allergy/AdvReac Type Severity Reaction Status Date / Time
codeine Allergy Nausea Verified 04/04/25 14:21
Iodinated Contrast Media Allergy Hives Verified 04/04/25 14:21
iodine Allergy Hives Verified 04/04/25 14:21
Sulfa (Sulfonamide AdvReac Nausea / Verified 04/04/25 14:21
Antibiotics) Vomiting/diarrhea
Home Medications
calcium 600 mg (as carbonate)-vitamin D3 10 mcg (400 unit) tablet (Calcium 600 + D(3)) 1 tab PO DAILY Supplement 05/14/15
denosumab 60 mg/mL subcutaneous syringe (Prolia) 60 mg SC [id number] osteoporosis 05/14/15
tiotropium bromide 18 mcg capsule with inhalation device (Spiriva with HandiHaler) 1 cap inhalation R DAILY Lung/Breathing Issues 05/14/15
cyanocobalamin (vitamin B-12) 1,000 mcg tablet 1,000 mcg PO DAILY Supplement 11/02/23
cyclosporine 0.05 % eye drops in a dropperette (Restasis) 1 drp BOTH EYES Q12H Eye Condition 11/02/23
simvastatin 20 mg tablet (Zocor) 20 mg PO HS High Cholesterol 11/02/23
trazodone 100 mg tablet 100 mg PO HS mental health/sleep 11/02/23
cholecalciferol (vitamin D3) 25 mcg (1,000 unit) capsule (Vitamin D3) 25 mcg PO Q48H Supplement 07/11/24
multivitamin 1 tab PO DAILY Supplement 07/11/24
loperamide 2 mg capsule 2 mg PO DAILYPRN PRN diarrhea 07/19/24
albuterol sulfate 90 mcg/actuation aerosol inhaler 2 puff inhalation R Q6HPRN PRN sob/wheezing 09/26/24
furosemide 40 mg tablet 20 mg PO MOWEFR Fluid Retention/Swelling 09/26/24
acetaminophen 500 mg tablet (Tylenol Extra Strength) 1,000 mg PO BIDPRN PRN mild pain 10/05/24
fluticasone 250 mcg-salmeterol 50 mcg/dose blistr powdr for inhalation (Advair Diskus) 2 inh inhalation R BID 10/05/24
Review of Systems
-
History Source: Patient
Constitutional: Reports No Symptoms
EENT: Reports Runny Nose and Other (sneezing )
Respiratory: Reports Cough and Trouble Breathing (exertional shortness of breath )
Cardiac: Reports No Symptoms
Abdomen/GI: Reports Diarrhea
: Reports No Symptoms
Musculoskeletal: Reports No Symptoms
Skin: Reports No Symptoms
Neurological: Reports No Symptoms
Endocrine: Reports No Symptoms
Hematologic/Lymphatic: Reports No Symptoms
Psych: Reports No Symptoms
Physical Exam
Vital Signs
Vital Signs
Temp Pulse Resp BP Pulse Ox
98.1 F 109 18 161/83 92
04/04/25 14:21 04/04/25 19:45 04/04/25 19:45 04/04/25 19:31 04/04/25 19:46
Physical Exam
General: Well Developed, Well Nourished, No Apparent Distress and Conversant
HEENT: NormoCephalic, Moist mucous membranes, Atraumatic, Nose Appears Normal and Ears Appear Normal
Respiratory: Clear (right lung CTA) and Rhonchi (Left lung scattered rhonchi )
Cardiac: S1/S2, Regular Rhythm and Tachycardia (just completed DuoNeb)
Breast: Deferred by me
GI: Soft, Non Tender, Non Distended and Normal Bowel Sounds; No Organomegaly
Rectal: Deferred by Provider
Genito-urinary: Deferred by me
Musculoskeletal: No Clubbing, No Cyanosis and No Edema
Skin: Warm and IV/Catheter Site
Neuro: Awake, Alert, AO x 3 and Nonfocal/grossly intact
Psych: Calm and Intact Judgment/Insight
Laboratory Results
-
04/04/25 14:43
04/04/25 14:43
Laboratory Results
Total Bilirubin 0.4 mg/dl (0.2-1.3) 04/04/25 14:43
AST 31 U/L (14-36) 04/04/25 14:43
ALT 26 U/L (0-35) 04/04/25 14:43
Alkaline Phosphatase 50 U/L (38-126) 04/04/25 14:43
Troponin I < 0.012 ng/ml 04/04/25 14:43
Data Reviewed
-
Diagnostic Radiology: Report Reviewed by me (CXR: Mild left basilar atelectasis and/or pneumonia. Cannot rule out component of underlying chronic interstitial lung disease.)
Medical Tests (Nuc Med, Echo, EKG etc): Report Reviewed by me (EKG: SINUS TACHYCARDIA)
Lab Data: Labs Reviewed by me (WBC 11.9, Neut 79.0, BNP 710)
Impression/Plan
-
IMPRESSION/PLAN:
#Pneumonia
recent Covid infection
Covid: pending
Influenza: pending
CXR: Mild left basilar atelectasis and/or pneumonia.
Cannot rule out component of underlying chronic interstitial lung disease.
EKG: SINUS TACHYCARDIA
- Admit to med/surg
- IV Ceftriaxone and Doxycycline
- DuoNeb QID and PRN
- supportive care
#HFpEF
BNP 710
ECHO (08/26/2024) : Normal left ventricular size and wall thickness.
Low normal systolic function. LVEF 50 to 55%.
No regional wall motion abnormalities.
Normal right ventricular size and function.
Mitral annular calcification and bileaflet prolapse. Mild mitral regurgitation.
Moderately calcified aortic valve without stenosis.
Mild to moderate tricuspid regurgitation. PASP 35 mmHg.
- daily weights
- I&Os
- continue Lasix
#hyperlipidemia
- continue simvastatin
#COPD
- continue Spiriva, Advair and Albuterol
- O2 as needed, wean as tolerated
#hypertension
#diverticulosis
#osteoporosis
Code status: DNR
DVT prophylaxis: Lovenox Sq
[2025-04-04] MEDS: DUONEB 3 ML INH (20:22)
[2025-04-04] MEDS: ROCEPHIN 2000 MG IV (20:24)
[2025-04-04] MEDS: ZITHROMAX INFUSION 250 IV (20:30)
[2025-04-04 21:00] VITALS: BP 141/83
--- NOTE | 2025-04-04 21:33 | W.PN.UPDATE ---
Update Note
Progress Note Update
This is an addendum to H&P written by Ladonna Moseley on 04/04/2025.� Patient seen and examined independently with [employer].
85-year-old female past medical history of COPD, JENNIFER infection, HFpEF, hypertension, hyperlipidemia, ESBL bacteremia, macrocytic anemia, osteoporosis, glaucoma, presenting with worsening shortness of breath, viral syndrome.� Had COVID in early February
with ongoing cough, sneezing, rhinorrhea since then without treatment.� Very short of breath today.
Vital signs show blood pressure 150s, heart rate 112, hypoxemia requiring 2 L oxygen.
Labs show leukocytosis.
Chest x-ray shows mild left basilar atelectasis/pneumonia, cannot rule out component of underlying chronic interstitial lung disease.� EKG shows sinus tachycardia.
Patient with likely left basilar pneumonia/acute bronchitis, DuoNebs, sputum culture, ceftriaxone/doxycycline.� Gentle IV fluids although caution given CHF history.�Check COVID and influenza.
[2025-04-04] MEDS: NSS 500 IV (21:48)
[2025-04-04 22:00] LABS: COVID-19 Antigen Negative (Negative)
--- NOTE | 2025-04-04 23:00 | PTCARENOTE ---
adm pt to unit @ this time, Pt cont for small void, harsh dry cough, 96% on 2l n/c HART reports headache pain 01/23 oriented to room and hospital policies, callbell within reach bed alarm activated.
[2025-04-04] MEDS: RESTASIS 0.05% OPHTHALMIC EMULSION 1 DROPS BOTH EYES (23:26)
[2025-04-04] MEDS: DESYREL 100 MG PO (23:26)
[2025-04-04] MEDS: MUCINEX 600 MG PO (23:26)
[2025-04-04] MEDS: TYLENOL 650 MG PO (23:26)
[2025-04-04] MEDS: LIPITOR PO (23:27)
[2025-04-04] MEDS: VIBRAMYCIN 260 MG IV (23:27)
[2025-04-04 23:31] VITALS: BP 130/82; BMI 19.8
[2025-04-05] MEDS: VENTOLIN NEBULES 1.25 MG INH ×5 (00:31→19:10)
[2025-04-05] MEDS: ADVAIR HFA 115/21 MCG INHALER 2 PUFF INH ×3 (00:47→19:10)
[2025-04-05 06:00] VITALS: BMI 19.8
[2025-04-05 06:13] VITALS: BMI 19.8
[2025-04-05 06:31] LABS: Hematocrit 28.5 % (37.0-47.0); Hemoglobin 9.9 g/dL (12.0-16.0); Mean Corp Hgb Conc. 34.7 g/dL (33.0-37.0); Mean Corpuscular Hgb 32.4 pg (27.0-31.0); Mean Corpuscular Volume 93.1 fL (81.0-99.0); Mean Platelet Volume 9.5 fL (7.4-10.4); Platelet Count 183 10^3/uL (130-400); Red Blood Cell Count 3.06 10^6/uL (4.20-5.40); Red Cell Dist. Width 13.3 % (11.5-14.5)
[2025-04-05 07:22] VITALS: BP 120/58
[2025-04-05] MEDS: SPIRIVA RESPIMAT 2.5 MCG 2 PUFF INH (07:42)
[2025-04-05] MEDS: VITAMIN B-12 1000 MCG PO (08:38)
[2025-04-05] MEDS: THERAGRAN 1 TABLET PO (08:38)
[2025-04-05] MEDS: MUCINEX 600 MG PO ×2 (08:39→19:58)
[2025-04-05] MEDS: OSCAL 500 + D 500 MG PO (08:39)
[2025-04-05] MEDS: LASIX 20 MG PO (08:40)
[2025-04-05 09:29] LABS: D-Dimer 0.76 ug/mlFEU (0.00-0.50)
[2025-04-05 09:52] VITALS: BP 115/67; PULSE 90; O2SAT 96
--- NOTE | 2025-04-05 10:03 | CM ---
Initial assessment completed. Patient is a 85-year-old female with past medical history significant for hypertension, hyperlipidemia, COPD, diverticulosis and osteoporosis who presented to [facility] ED for evaluation of worsening URI symptoms.
Patient resides alone in an independent living apartment at [facility]. Independent in all areas, no DME. No SNF hx, prev known to [facility] and [facility] for home infusion. Has supportive children.
Address, points of contact and insurance verified
PCP: Rosalba Woods
Pharmacy: [facility]
PT ordered, will watch for any recommendations
Plan: CM will cont to follow for d/c planning
[2025-04-05] MEDS: VIBRAMYCIN 260 MG IV (12:12)
[2025-04-05] MEDS: RESTASIS 0.05% OPHTHALMIC EMULSION 1 DROPS BOTH EYES ×2 (12:12→21:29)
--- NOTE | 2025-04-05 15:24 | W.PN.HOSP.TC ---
Addendum entered and electronically signed by Roberto Weiss MD 04/06/25 15:36:
85 female history of hypertension hyperlipidemia COPD diverticulosis and osteoporosis presenting with worsening shortness of breath runny nose sneezing diarrhea x 2 days. Was found to have a pulse ox in the low 80s and then transported to the "[facility] where she was started on supplemental oxygen with improvement. Chest x-ray demonstrating mild left basilar atelectasis/pneumonia.
Acute hypoxemic respiratory failure likely in the setting of pneumonia however need to rule out potential other etiologies as this has been progressive because of shortness of breath and presenting with tachycardia.
Check D-dimer
If D-dimer hide check CT PE. If not hide would check CT noncontrast to further assess for potential ILD
Continue Rocephin doxycycline
Continue mucolytic
Incentive spirometer
Acapella
Wean oxygen as tolerated
Will require outpatient PFTs for concern of ILD as DLCO will be needed
May require 6-minute walk test/home O2 assessment prior to discharge
HFpEF, chronic, euvolemic
Daily weights
Continue I's and O's
Lasix Thursday
Hyperlipidemia
Statin
COPD without evidence of acute bronchospasm
Continue Spiriva Advair and albuterol
Maintain goal SpO2 greater than 88 to 92%
Prolonged QT
Avoid QT sparing agent
Monitor on telemetry
Discontinue Zofran
Original Note:
Today's Communication/Plan
-
Home O2 assessment in the a.m. tomorrow
Continue ceftriaxone and doxycycline
Continue inhalers
Add Mucinex twice daily
Add Acapella and incentive spirometry. Plan for discharge tomorrow.
Assessment / Plan
Assessment / Plan
[age]dy[age]qi-68-cm[age]-old female with PMHx significant for COPD, hypertension, hyperlipidemia, diverticulosis and osteoporosis is admitted to the hospital for evaluation of shortness of breath, runny nose, diarrhea x 2 days requiring O2
supplementation. Diagnosed with acute hypoxemic respiratory failure.
Plan-
Acute hypoxemic respiratory failure-
Resolved, likely secondary to pneumonia.
D-dimer at 0.79, when adjusted for age the likelihood of PE is low as D-dimer is not elevated (normal cutoff is at 0.85 for her age).
Continue doxycycline and IV ceftriaxone.
Incentive spirometry and Acapella.
Add Mucinex twice daily.
6-minute walk test/home assessment prior to discharge.
COPD-
No established diagnosis of COPD
No evidence of bronchospasm.
Continue albuterol and Spiriva, Advair inhalers.
Goal SpO2 is 88 to 92%,
Currently on room air at goal SpO2.
Recommend outpatient PFTs for concern of ILD on imaging.
Chronic HFpEF
No signs of exacerbation-on physical exam, lab values
Most recent echocardiogram-08/26/2024-EF 50 to 55%, PASP-35 mmHg
Obtain daily weights, continue I's and O's
Continue home diuretic regimen-Thursday and Thursday
Trend serum creatinine.
QT prolongation-
Suspect secondary to Zofran
Discontinue Zofran
Avoid QT prolonging medications
Monitor patient on telemetry
Hyperlipidemia-
on statin, continue home statin
Insomnia-
Continue trazodone
DVT prophylaxis-
Lovenox 40 Mg every afternoon
CODE STATUS-
DNR.
Anticipated Discharge: Within 24 hours
Subjective/Interval History
-
Date of Service: April 05, 2025
Patient reports that her shortness of breath improved, she is able to walk down the hallway but has severe cough with expectoration
Objective Data
-
Labs:
Laboratory Results
04/05/25
05:45
WBC 9.0
Hgb 9.9 L
Hct 28.5 L
Plt Count 183
Vital Signs:
Vital Signs
Temp Pulse Resp BP Pulse Ox
98.1 F 104 16 120/58 97
04/05/25 07:22 04/05/25 15:13 04/05/25 15:13 04/05/25 08:40 04/05/25 15:13
I&O
04/04/25 04/05/25 04/06/25
06:59 06:59 06:59
Intake Total 180 / 180
Balance 180 / 180
Review of Systems
-
History Source: Patient
Constitutional: Reports Fatigue (Improving.)
EENT: Reports No Symptoms Reported
Respiratory: Reports Cough, Trouble Breathing (Improved.), Wheezing and Other (Expectoration.); Denies Hemoptysis or Pleurisy
Cardiac: Denies Chest Pain, Diaphoresis, Palpitations or Orthopnea
Abdomen/GI: Reports No Symptoms
Genitourinary: Reports No Symptoms
Musculoskeletal: Reports No Symptoms
Neuro: Reports No Symptoms
Allergy / Immunology: Reports No Symptoms
Physical Exam
-
General: No Apparent Distress and Comfortable
HEENT: Moist Mucous Membranes, Anicteric, [place] [employer]junctivae and PERRLA
Respiratory: Clear to Auscultation (In bilateral upper lobes), Wheezes (Bilateral expiratory wheezes across the right middle lobe, right lower lobe and left lower lobe.) and Crackles (Faint crackles in bilateral lower lobes.); Negative Rales,
Rhonchi or Decreased Breath Sounds
Cardiac: Regular Rhythm and S1/S2; Negative Murmur, Rub or Gallop
GI: Soft, Nontender, Nondistended and Normal Bowel Sounds
Genito-urinary: No Costovertebral Tender
Musculoskeletal: No Clubbing, No Cyanosis and No Edema
Neuro: AO x 3 and No Motor Deficits
Psych: Calm
[2025-04-05 15:25] VITALS: BP 136/77
[2025-04-05] MEDS: STERILE WATER FOR INJECTION 20 ML IV (19:59)
[2025-04-05] MEDS: ROCEPHIN 2000 MG IV (19:59)
[2025-04-05] MEDS: LIPITOR 10 MG PO (21:29)
[2025-04-05] MEDS: DESYREL 100 MG PO (21:29)
[2025-04-05] MEDS: TYLENOL 650 MG PO (21:33)
[2025-04-05 23:07] VITALS: BP 120/64
[2025-04-06] MEDS: VIBRAMYCIN 260 MG IV ×2 (00:03→11:41)
[2025-04-06 06:00] VITALS: BMI 19.7
[2025-04-06 07:18] LABS: Hematocrit 28.7 % (37.0-47.0); Hemoglobin 10.1 g/dL (12.0-16.0); Mean Corp Hgb Conc. 35.2 g/dL (33.0-37.0); Mean Corpuscular Hgb 32.9 pg (27.0-31.0); Mean Corpuscular Volume 93.5 fL (81.0-99.0); Mean Platelet Volume 9.4 fL (7.4-10.4); Platelet Count 198 10^3/uL (130-400); Red Blood Cell Count 3.07 10^6/uL (4.20-5.40); Red Cell Dist. Width 13.4 % (11.5-14.5); White Blood Cell Count 6.5 10^3/uL (4.8-10.8)
[2025-04-06 07:19] LABS: Blood Urea Nitrogen 10 mg/dl (7-17); Calcium 8.3 mg/dl (8.4-10.2); Carbon Dioxide 24 mmol/L (22-30); Chloride 113 mmol/L (98-107); Estimated Creatinine Clearance 40 ml/min; Glucose 92 mg/dl (70-99); Potassium 3.4 mmol/L (3.5-5.1); Sodium 142 mmol/L (135-145); eGFR > 60.00
[2025-04-06 07:30] VITALS: BP 128/76
[2025-04-06] MEDS: VENTOLIN NEBULES 1.25 MG INH ×2 (08:13→12:08)
[2025-04-06] MEDS: SPIRIVA RESPIMAT 2.5 MCG 2 PUFF INH (08:14)
[2025-04-06] MEDS: ADVAIR HFA 115/21 MCG INHALER 2 PUFF INH (08:14)
[2025-04-06] MEDS: OSCAL 500 + D 500 MG PO (08:43)
[2025-04-06] MEDS: MUCINEX 600 MG PO (08:43)
[2025-04-06] MEDS: THERAGRAN 1 TABLET PO (08:43)
[2025-04-06] MEDS: VITAMIN B-12 1000 MCG PO (08:43)
[2025-04-06] MEDS: VITAMIN D3 (cholecalciferol) 25 MCG PO (08:43)
[2025-04-06] MEDS: RESTASIS 0.05% OPHTHALMIC EMULSION 1 DROPS BOTH EYES (08:47)
[2025-04-06] MEDS: KCL ELIXIR 40 MEQ PO (10:35)
--- NOTE | 2025-04-06 10:37 | W.PN.HOSP.TC ---
Addendum entered and electronically signed by Roberto Weiss MD 04/06/25 15:37:
85 female history of hypertension hyperlipidemia COPD diverticulosis and osteoporosis presenting with worsening shortness of breath runny nose sneezing diarrhea x 2 days. Was found to have a pulse ox in the low 80s and then transported to the "[facility] where she was started on supplemental oxygen with improvement. Chest x-ray demonstrating mild left basilar atelectasis/pneumonia.
Acute hypoxemic respiratory failure likely in the setting of pneumonia however need to rule out potential other etiologies as this has been progressive because of shortness of breath and presenting with tachycardia.
Check D-dimer
If D-dimer hide check CT PE. If not hide would check CT noncontrast to further assess for potential ILD
Continue Rocephin doxycycline, transition to oral cefdinir and doxy to complete 5days
Continue mucolytic
Incentive spirometer
Acapella
Wean oxygen as tolerated
Will require outpatient PFTs for concern of ILD as DLCO will be needed
May require 6-minute walk test/home O2 assessment prior to discharge
HFpEF, chronic, euvolemic
Daily weights
Continue I's and O's
Lasix Thursday
Hyperlipidemia
Statin
COPD without evidence of acute bronchospasm
Continue Spiriva Advair and albuterol
Maintain goal SpO2 greater than 88 to 92%
Prolonged QT
Avoid QT sparing agent
Monitor on telemetry
Discontinue Zofran
More than 30 minutes spent in discharge including
Final examination of the patient
Summarizing hospital stay
Instructions for continuing care to all relevant caregivers
Preparation of discharge records, prescriptions, and referral forms
Total time spent (in minutes): 36mins
Original Note:
Today's Communication/Plan
-
Switch to oral cefixime, and oral doxycycline.
Plan for discharge.
Assessment / Plan
Assessment / Plan
[id number]-78-kizq-old female with PMHx significant for COPD, hypertension, hyperlipidemia, diverticulosis and osteoporosis is admitted to the hospital for evaluation of shortness of breath, runny nose, diarrhea x 2 days requiring O2
supplementation. Diagnosed with acute hypoxemic respiratory failure.
Plan-
Acute hypoxemic respiratory failure-
Resolved, likely secondary to pneumonia/infectious bronchiolitis
Sputum culture showed mixed respiratory evan with no significant organism growth within the first 24 hours.
D-dimer at 0.79, when adjusted for age the likelihood of PE is low as D-dimer is not elevated (normal cutoff is at 0.85 for her age).
Switch to oral doxycycline and cefixime, for 5 more days.
Incentive spirometry and Acapella.
Add Mucinex twice daily.
6-minute walk test/home assessment -
COPD-
No established diagnosis of COPD
No evidence of bronchospasm.
Continue albuterol and Spiriva, Advair inhalers.
Goal SpO2 is 88 to 92%,
Currently on room air at goal SpO2.
Recommend outpatient PFTs for concern of ILD on imaging.
Chronic HFpEF
No signs of exacerbation-on physical exam, lab values
Most recent echocardiogram-08/26/2024-EF 50 to 55%, PASP-35 mmHg
Obtain daily weights, continue I's and O's
Continue home diuretic regimen-Thursday and Thursday
Trend serum creatinine.
QT prolongation-
Avoid Zofran or QT prolonging agents
No QT prolongation on telemetry in the a.m. today
Hyperlipidemia-
on statin, continue home statin
Insomnia-
Continue trazodone
DVT prophylaxis-
Lovenox 40 Mg every afternoon
CODE STATUS-
DNR.
Anticipated Discharge: Today
Subjective/Interval History
-
Date of Service: April 06, 2025
Objective Data
-
Labs:
Laboratory Results
04/06/25
06:15
WBC 6.5
Hgb 10.1 L
Hct 28.7 L
Plt Count 198
Sodium 142
Potassium 3.4 L
Chloride 113 H
Carbon Dioxide 24
BUN 10
Creatinine 0.8
Glucose 92
Calcium 8.3 L
Vital Signs:
Vital Signs
Temp Pulse Resp BP Pulse Ox
97.7 F 73 17 128/76 96
04/06/25 07:30 04/06/25 08:18 04/06/25 08:18 04/06/25 07:30 04/06/25 08:18
I&O
04/05/25 04/06/25 04/07/25
06:59 06:59 06:59
Intake Total 180 / 180
Balance 180 / 180
--- NOTE | 2025-04-06 10:43 | W.DCSUMMARY ---
Discharge Summary
Discharge Data
Date of Admission: 04/04/25
Date of Discharge: 04/06/25
-
Pending Results: Yes
Additional Pending Results:
Final sputum cultures
Hospital Course
Assessment - 85-year-old female with PMHx significant for COPD, hypertension, hyperlipidemia, diverticulosis and osteoporosis is admitted to the hospital for evaluation of shortness of breath, runny nose, diarrhea x 2 days requiring O2
supplementation. Diagnosed with acute hypoxemic respiratory failure.
PCP - Rosalba Woods
Hospital course-
During the 3-day hospital course, patient was determined to have acute hypoxemic respiratory failure however her oxygen requirement dramatically improved overnight into 04/05/2022. Patient was eventually weaned off of oxygen she was suspected to
have acute hypoxemic respiratory failure secondary to pneumonia versus COPD exacerbation. Chest x-ray was obtained that showed evidence for mild left basilar atelectasis versus pneumonia but possibility of underlying chronic interstitial lung
disease. Patient was given antibiotics and was also obtained a chest CT scan to evaluate for interstitial lung disease-impressions on the CAT scan are consistent with bilateral infectious bronchiolitis and centrilobular emphysema. Patient was
given Mucinex, and IV ceftriaxone, doxycycline with significant improvement. She was encouraged to do Acapella and incentive spirometry throughout the course of hospitalization. Upon improvement in patient's performance, patient was discharged
home on 5-day course of cefixime and doxycycline after finishing 2-day course of antibiotics in the hospital. Recommend outpatient evaluation of interstitial lung disease.
Her age-adjusted D-dimer was within normal limits hence PE as a possibility was ruled out.
Her weights have remained stable and consistent throughout hospitalization, and patient was euvolemic hence there is no suspicion for exacerbation of heart failure.
Rest of chronic medical conditions are managed with home medications.
workup in the hospital-
Sputum culture-within first 24 hours-mixed respiratory evan
Chest CT-04/05/2025-
Impression-
IMPRESSION:
1. Findings as above most consistent with bilateral bronchiolitis, most likely infectious bronchiolitis. Small amount of associated airspace consolidation at the left base.
2. Advanced changes of centrilobular emphysema as seen previously.
3. Relative narrowing of the left mainstem bronchus secondary to extrinsic compression as above, similar appearance to previous examination.
4. Coronary and aortic atherosclerosis.
Chest x-ray-04/04/2025-
Impression-mild left basilar atelectasis or pneumonia, cannot rule out a component of underlying chronic interstitial lung disease
Discharge Plan
-
Patient Disposition: Home (Routine Discharge)
Discharge Diagnosis/Procedures: Bronchiolitis, Pneumonia and COPD exacerbation.
Condition: Good
Diet: No restrictions and As tolerated
Activity: No restrictions
Driving Restrictions: As prior to admission
Blood Work: CBC and BMP in 1 week.
Instructions: Acute Bronchitis, Adult (DC), Chronic obstructive pulmonary disease (COPD) - Discharge instructions
Referrals:
Rosalba Woods DO [Family Provider] -
Additional Discharge Medication Instructions: Recommend interstitial lung disease screening and pulmonary function testing on outpatient basis.
Final results of the sputum cultures are pending.
Prescriptions:
New
cefixime 400 mg capsule
400 mg PO DAILY 5 Days Qty: 5 0RF
doxycycline hyclate 100 mg capsule
100 mg PO BID 5 Days Qty: 10 0RF
Rx Instructions:
sit upright for 30 minutes after taking medication.
Continued
tiotropium bromide [Spiriva with HandiHaler] 18 MCG capsule, w/inhalation device
1 cap inhalation R DAILY
calcium carbonate-vitamin D3 [Calcium 600 + D(3)] 600 mg-10 mcg (400 unit) Tablet
1 tab PO DAILY
Prolia 60 mg/mL Syringe
60 mg SC [id number]
cyanocobalamin (vitamin B-12) 1,000 mcg Tablet
1,000 mcg PO DAILY
trazodone 100 mg Tablet
100 mg PO HS
cyclosporine [Restasis] 0.05 % Dropperette
1 drp BOTH EYES Q12H
simvastatin [Zocor] 20 mg Tablet
20 mg PO HS
multivitamin Tablet
1 tab PO DAILY
cholecalciferol (vitamin D3) [Vitamin D3] 25 mcg (1,000 unit) Capsule
25 mcg PO Q48H
loperamide 2 mg Capsule
2 mg PO DAILYPRN PRN (Reason: diarrhea)
furosemide 40 mg tablet
20 mg PO MOWEFR
Rx Instructions:
on hold starting 10/05/24
albuterol sulfate 90 mcg/actuation HFA aerosol inhaler
2 puff INHALATION R Q6HPRN PRN (Reason: sob/wheezing)
fluticasone propion-salmeterol [Advair Diskus] 250-50 mcg/dose Blister With Device
2 inh INHALATION R BID
acetaminophen [Tylenol Extra Strength] 500 mg Tablet
1,000 mg PO BIDPRN PRN (Reason: mild pain)
Discharge Orders:
Discharge Patient (As Directed); Ordered 04/06/25
Ordered By: Shelia Cooper
Discharge Date and Time
Print Language: UPPER SORBIAN
--- NOTE | 2025-04-06 11:02 | CM ---
Patient medically stable for d/c today
Therapy rec home PT, referred to [facility]
Updated son, Sj, who will transport patient home
Spoke w/ patient bedside, agreeable to d/c. IMM verbally reviewed, copy given to patient, copy on chart
Spoke w/ Victoria/Tim chandler, who informed CM that patient was set up for their home care in the past and terminated. Will re-assess patient's interest in services once she is home.
Plan: Return to [facility] today. Son will transport
[2025-04-06 13:40] VITALS: BP 148/89
== END 2025-04-06 13:53 | disposition home health service (06) | DRG 193 ==
LOC: 2 NORTH 21:41
PROVIDERS: Nurse Practitioner Family; Student in an Organized Health Care Education/Training Program; ADMITTING PHYSICIAN Hospitalist; ATTENDING PHYSICIAN Hospitalist; EMERGENCY PHYSICIAN Emergency Medicine; FAMILY PHYSICIAN Internal Medicine
DX: J18.9 Pneumonia, unspecified organism (principal); J96.01 Acute respiratory failure with hypoxia; J21.9 Acute bronchiolitis, unspecified; J44.0 Chronic obstructive pulmonary disease with (acute) lower respiratory infection; J44.1 Chronic obstructive pulmonary disease with (acute) exacerbation; I50.32 Chronic diastolic (congestive) heart failure; J43.2 Centrilobular emphysema; I70.0 Atherosclerosis of aorta; M81.0 Age-related osteoporosis without current pathological fracture; I11.0 Hypertensive heart disease with heart failure; E78.00 Pure hypercholesterolemia, unspecified; D64.9 Anemia, unspecified; Z87.891 Personal history of nicotine dependence; Z88.5 Allergy status to narcotic agent; Z88.2 Allergy status to sulfonamides; Z91.041 Radiographic dye allergy status; Z86.16 Personal history of COVID-19; Z66 Do not resuscitate; Z79.51 Long term (current) use of inhaled steroids; Z79.899 Other long term (current) drug therapy; Z90.710 Acquired absence of both cervix and uterus; Z11.52 Encounter for screening for COVID-19
CPT/HCPCS: 71046; 71250; 80048; 80053; 83880; 84484; 85025; 85027; 85379; 87070; 87205; 87449; 87502; 87811; 87899; 93005; 94640; 96361; 96365; 96375; 97162; 99285

== ENCOUNTER → 2025-05-16 14:17 | Outpatient (REF) | payer MEDICARE, BC, SELFPAY | LOC: HWRAD 14:17 | PROVIDERS: ATTENDING PHYSICIAN Internal Medicine | DX: S80.02XA Contusion of left knee, initial encounter (principal) | CPT/HCPCS: 73564 ==

== ENCOUNTER → 2025-06-01 10:21 | Outpatient (REF) | payer MEDICARE, BC, SELFPAY | LOC: HWRAD 10:21 | PROVIDERS: ATTENDING PHYSICIAN Internal Medicine | DX: M25.551 Pain in right hip (principal) | CPT/HCPCS: 72110; 73502 ==

== ENCOUNTER → 2025-09-06 14:23 | Outpatient (REF) | payer MEDICARE, BC, SELFPAY | LOC: HWRAD 14:23 | PROVIDERS: ATTENDING PHYSICIAN Internal Medicine; REFERRING PHYSICIAN Internal Medicine Critical Care Medicine | DX: E04.1 Nontoxic single thyroid nodule (principal) | CPT/HCPCS: 76536 ==